=== PATIENT | male | born 1965 | race Caucasian/White ===

== ENCOUNTER → 2019-05-01 16:54 | Outpatient (CLI) | payer OTHER, SELFPAY ==
--- NOTE | 2019-05-01 17:30 | MRI_ITS ---
HISTORY:left shoulder pain s/p fall onto left elbow, unable to lift arm above head MRI EXAMINATION OF THELeft SHOULDER COMPARISON: None TECHNIQUE: Coronal fat-suppressed T2 and fat-suppressed proton density, sagittal T2 and axial fat-suppressed proton density and T2 # of images including paperwork:173 FINDINGS: Bones: There is no acute fracture. Minimal marrow edema is seen at the greater tuberosity. There is superior subluxation of the humeral head in relation to the glenoid. Rotator cuff: There is a full-thickness tear involving the supraspinatus tendon seen best on coronal image 9 series 6 and sagittal image 19 series 6. This measures approximate 1.5 cm AP. There do appear to be posterior fibers that appear intact. The infraspinatus tendon is intact. Subscapularis tendon is frayed at the articular surface with minimal intrasubstance tearing involving the superior most fibers. The teres minor tendon is intact no evidence of muscle atrophy Coracoacromial arch and Acromioclavicular joint: The acromion demonstrates Bigliani Type 2 morphology. The acromiohumeral distance is preserved. There is minimal lateral downsloping of the acromion. Moderate acromial clavicular arthropathy. Superior and inferior osteophytes. There is fluid seen within the subacromial subdeltoid bursa. Coracoacromial ligament appears mildly thickened and slightly effaces the supraspinatus muscle proximally Biceps tendon: The bicipital tendon is poorly on this study due to motion. The extra-articular tendon is visualized within the bicipital groove. Evaluation of the intra-articular tendon is markedly limited. Glenohumeral joint and labrum: Small joint effusion. The anterior and the posterior bands of the inferior glenohumeral ligament are intact. I do not see a definite labral tear. No masses are seen within the suprascapular notch or the spinoglenoid notch. The quadrilateral space is unremarkable. There is glenohumeral joint space narrowing however the articular cartilage appears intact CONCLUSION: Full-thickness tear of the supraspinatus tendon. There may be minimal posterior fibers persist. Superior subluxation humeral head in relation to glenoid. The glenohumeral joint space is preserved however. Moderate acromioclavicular arthropathy. There is fluid seen within the subacromial subdeltoid bursa. I do not see a definite labral tear. The bicipital tendon intra-articular is not well visualized on the study due to motion. at [id number] Reported and signed by: Lauren Casillas DO Electronically Signed: Lauren Casillas DO at 23:37 EST Tel , Service support , MRI/Upper Ext Joint Only(Routine)
== END ==
PROVIDERS: Family Provider Family Medicine; PCP Family Medicine; Referring Provider Family Medicine; Visit Provider Family Medicine
DX: S40.012A Contusion of left shoulder, initial encounter (principal); S43.402A Unspecified sprain of left shoulder joint, initial encounter
CPT/HCPCS: 73221

== ENCOUNTER → 2019-06-08 09:42 | Outpatient (CLI) | payer OTHER, SELFPAY ==
[2016-09-26 22:18] VITALS: BMI 30.2
--- NOTE | 2019-06-08 10:03 | EKG12_ITS ---
Test Reason : PRE-OP Blood Pressure : / mmHG Vent. Rate : 070 BPM Atrial Rate : 070 BPM P-R Int : 120 ms QRS Dur : 076 ms QT Int : 392 ms P-R-T Axes : 055 025 050 degrees QTc Int : 423 ms Normal sinus rhythm Nonspecific ST abnormality Abnormal ECG Confirmed by HANS DAWN, ROSIBEL ([id number]), editor in chief newspaper ESTER SMALL ([id number]) on 06/11/2019 10:15:06 AM Referred By: Aidan Small Confirmed By:TAYE MAXWELL MD
[2019-06-08 11:16] LABS: Anion Gap 7 (5-15); BUN 30 mg/dL (7-18); BUN/Creat Ratio 20.8 RATIO (10-20); Calcium,Total 9.4 mg/dL (8.5-10.1); Chloride 99 mmol/L (98-107); Creatinine, Serum 1.44 mg/dL (0.70-1.30); EST Glomerular Filtration Rate 54 mL/min (>60); Est Glom Filt Rate - Afr Amer 66 mL/min (>60); Glucose 104 mg/dL (74-106); Potassium 3.7 mmol/L (3.5-5.1); Sodium Level 134 mmol/L (136-145)
== END ==
PROVIDERS: PCP Family Medicine; Referring Provider Orthopaedic Surgery; Visit Provider Orthopaedic Surgery
DX: Z01.818 Encounter for other preprocedural examination (principal); I10 Essential (primary) hypertension; Z79.899 Other long term (current) drug therapy
CPT/HCPCS: 36415; 80048; 93005

== ENCOUNTER → 2021-10-06 | Outpatient (CLI) | payer OTHER, SELFPAY ==
--- NOTE | 2021-10-06 06:46 | MRI_ITS ---
STUDY: MRI RIGHT ELBOW REASON FOR EXAM: Right posterior elbow pain, felt a pop 09/17/2021. TECHNIQUE: Standardized fat and water weighted pulse sequences were obtained in all 3 orthogonal planes. COMPARISON: None. FINDINGS: There is a small subchondral cyst in the posterior capitellum. Normal radial collateral ligamentous complex. There is an undersurface partial tear of the common extensor tendon (inversion recovery coronal images 12, 13). Normal ulnotrochlear articulation. Normal ulnar collateral ligamentous complex. There is a small low-grade undersurface partial tear of the common flexor tendon (inversion recovery coronal image 18). The cubital tunnel is normal, with a normal ulnar nerve. Normal biceps tendon and distal insertion. Normal lacertus fibrosis. Normal brachialis musculotendinous insertion. There is a tear of the distal triceps tendon retracted approximately 1.5 cm from the olecranon process (T2 sagittal images 12-17; inversion recovery coronal image 21). Normal olecranon process. The visualized distal humerus, proximal radius, and ulna are normal. There is edema in the distal triceps muscle (inversion recovery coronal image 17). There is fluid and edema in the posterior subcutis adipose space. MRI/Upper Ext Joint Only(Routine) IMPRESSION: Retracted tear of the distal triceps tendon. Undersurface partial tear of the common extensor tendon. Small low-grade undersurface partial tear of the common flexor tendon. Electronically Signed: Sunday Lombardo MD at 9:46 EDT ,
== END | disposition home or self-care (01) ==
LOC: MRI 06:39
PROVIDERS: PCP Family Medicine
DX: S46.311A Strain of muscle, fascia and tendon of triceps, right arm, initial encounter (principal); S56.511A Strain of other extensor muscle, fascia and tendon at forearm level, right arm, initial encounter; S56.211A Strain of other flexor muscle, fascia and tendon at forearm level, right arm, initial encounter
CPT/HCPCS: 73221

== ENCOUNTER 2022-01-17 10:47 | Inpatient (IN) | payer BC, SELFPAY ==
[2022-01-17] VITALS (20 sets, daily range): BP systolic 80–129; BP diastolic 48–90; PULSE 72–94; RESP 16–25; TEMP 36.2–37.1; O2SAT 94–100; BMI 33.7; BMI 24.1; BMI 30.6
--- NOTE | 2022-01-17 11:01 | CT_ITS ---
We are attempting to reach an attending provider to discuss findings. An addendum with communication details will be sent when the communication is complete. STUDY: CT HEAD STROKE PROTOCOL W/O CONTRAST INJECTION REASON FOR EXAM: Male, 56 years old. Neuro deficit, acute, stroke suspected RADIATION DOSAGE (If Supplied By Facility): CTDIvol = ( ) mGy, DLP = ( ) mGycm TECHNIQUE: Transaxial CT imaging of the brain was performed without administration of intravenous contrast material. Individualized dose optimization techniques were used for this CT. COMPARISON: No relevant priors. FINDINGS: Normal soft tissue structures. Normal calvarium. Normal size ventricles and extra-axial spaces for the patient''s age. Normal white matter tracts of the cerebral hemispheres. Normal basal ganglia and thalami. Normal brainstem. Normal cerebellum. There is no intracranial hemorrhage. There are no findings of an acute ischemic infarction. Normal visualized paranasal sinuses. ASPECT score: 10 CT/STROKE Brain/Head without Cont IMPRESSION: Normal unenhanced CT scan of the brain. Electronically Signed: Lauren Pritchard MD at 11:37 EDT ,
--- NOTE | 2022-01-17 11:01 | EKG12_ITS ---
Test Reason : SOB Blood Pressure : / mmHG Vent. Rate : 095 BPM Atrial Rate : 095 BPM P-R Int : 122 ms QRS Dur : 082 ms QT Int : 408 ms P-R-T Axes : 023 017 041 degrees QTc Int : 512 ms Normal sinus rhythm Prolonged QT Abnormal ECG Confirmed by BO DAWN, YAMIL ([id number]), subeditor KACI PUCKETT ([id number]) on 01/18/2022 10:48:34 AM Referred By: Confirmed By:YAMIL SORIANO MD
--- NOTE | 2022-01-17 11:01 | ED.RN ---
this nurse obsevered less than 30 seconds of tonic muscle stiffinging and head pulling up. pt would be able to to response after, no sx of post ectial
--- NOTE | 2022-01-17 11:10 | RAD_ITS ---
STUDY: X-RAY CHEST REASON FOR EXAM: Male, 56 years old. Neuro deficit, acute, stroke suspected TECHNIQUE: Single AP portable view of the chest. COMPARISON: September 26, 2016 chest x-ray FINDINGS: The lungs are clear and expanded. There is no demonstrated pleural abnormality. Normal size heart. Normal mediastinum and raymundo. Normal visualized pulmonary arteries. Normal visualized aortic arch and descending thoracic aorta. There are diffuse degenerative changes of the visualized thoracic spine. There is degenerative osteoarthritis of the bilateral shoulders. There is no demonstrated abnormality of the visualized soft tissue structures of the upper abdomen. RAD/Chest 1 View IMPRESSION: Degenerative changes, as described above. No demonstrated acute cardiopulmonary process. Electronically Signed: Lauren Pritchard MD at 12:58 EDT ,
--- NOTE | 2022-01-17 11:15 | ED.RN ---
pt report drinks bottle of vodka a day. last drink was .
[2022-01-17 11:26] LABS: Absolute Lymphocyte Count 0.64 X10^3/uL (0.83-4.51); Absolute Neutrophil Count 15.7 X10^3/uL (2.0-7.7); Basophil# 0.01 X10^3/uL; Basophil% 0.1 % (0-1); Eosinophil# 0.03 X10^3/uL; Eosinophils% 0.2 % (0-5); Hematocrit 33.8 % (40-54); Hemoglobin 13.3 g/dL (13.0-16.5); Lymphocyte # 0.64 X10^3/ul (0.83-4.51); Lymphocyte % 3.5 % (19-41); Mean Corp Hgb Conc 39.3 g/dL (32-36); Mean Corpuscular Hgb 34.9 pg (27.0-32.0); Mean Corpuscular Volume 88.7 fL (80-94); Mean Platelet Vol. 10.3 fl (6.2-12.0); Monocyte# 1.81 X10^3/uL; Monocyte% 9.9 % (0-10); NRBC Flagged by Analyzer 0 % (0-5); Neutrophil # 15.65 X10^3/uL (2.7-7.7); Neutrophil % 85.3 % (47-70); POSITIVE COUNT YES; POSITIVE DIFFERENTIAL YES; Platelet Count 186 K/mm3 (150-450); RBC Distribution Width CV 12.3 % (11.6-14.6); RBC Distribution Width SD 39.9 fl (35.1-43.9); Red Blood Count 3.81 M/mm3 (4.6-6.2); White Blood Count 18.3 K/mm3 (4.4-11.0)
--- NOTE | 2022-01-17 11:29 | EX.ED.DYSGE1 ---
HPI History of Present Illness Chief Complaint: Neuro S/Sx Informant: patient and spouse/S.O. Onset/Context/Timing Onset: Days (4) Context: Gradual Onset Timing: Intermittent and Lasts (minutes) Quality: clenching hands, slurred speech Current Severity: Severe Maximum Severity: Severe Worsened by: unk Relieved by: unk Narrative Narrative: [place] . He states that he usually drink a lot of alcohol, he states 1-1.5 bottles of 42% vodka per day. Today being Tuesday morning, his last drink was Tuesday; on he did not feel well and so he stopped drinking. Since then, he has had multiple falls, during which he denies any injury, he has had trouble using both of his hands, saying they basically are inaccurate at trying to grab things and/or weak. did not witness all of this since she was working a lot of the time, but today she noticed him clenching his hands and acting a bit confused, and slurring speech severely prior to coming here. In his speech goes back to normal. Here in triage, nurse noticed an episode of this, he was almost decerebrate posturing transiently unresponsive, but this only lasted a couple minutes and then he was slurring his speech, moving everything, and his speech gradually came back to normal. [facility] Medical History Alcoholic Hypertension Home Medications aspirin 81 mg tablet,delayed release (Aspir-Low) 81 mg PO DAILY ##1 09/27/16 [Rx Last Taken Unknown] chlorthalidone 25 mg tablet 25 mg PO DAILY 01/17/22 [History Last Taken Unknown] irbesartan 150 mg tablet (Avapro) 150 mg PO DAILY 01/17/22 [History Last Taken Unknown] metoprolol succinate 25 mg tablet,extended release 24 hr 25 mg PO BID 01/17/22 [History Last Taken Unknown] Allergy/AdvReac Type Severity Reaction Status Date / Time No Known Allergies Allergy Verified 01/17/22 10:55 Family History (Updated 01/17/22 @ 13:[address] Dania Lopes MD) Mother Hypertension Surgical History (Updated 01/17/22 @ 13:[address] Dania Lopes MD) H/O elbow surgery H/O shoulder surgery History of herniorrhaphy Social History (Updated 01/17/22 @ 13:[address] Dania Lopes MD) household members: spouse Smoking Status: Current every day smoker tobacco type: smokeless tobacco alcohol intake: current substance use type: does not use ROS ROS ED Constitutional Constitutional ED: Reports fatigue, malaise and sweats; Denies chills or fever(s) Eyes Eyes: Denies change in vision or diplopia ENT ENT ED: Denies rhinorrhea or sore throat Cardiovascular Cardiovascular: Denies chest pain or palpitations Respiratory/Chest Respiratory/Chest: Denies cough or dyspnea Gastrointestinal Gastrointestinal: Denies abdominal pain, diarrhea, nausea or vomiting Genitourinary Genitourinary ED: Denies dysuria or hematuria Musculoskeletal Musculoskeletal: Denies back pain or neck pain Integumentary Denies abscess or rash Neurologic Neurologic: Reports as per HPI, memory loss and seizures; Denies headache(s), paresthesias or weakness Psychiatric Psychiatric: Denies anxiety or suicidal thoughts EXAM Physical Exam Const Vital Signs: 01/17/22 10:49 01/17/22 11:01 01/17/22 11:50 Temperature 97.2 F L Temperature Source Temporal Pulse Rate 94 80 Respiratory Rate 16 20 H Blood Pressure 103/90 H 81/49 L Blood Pressure Mean 94 59 Pulse Ox 98 99 99 Oxygen Delivery Method Room Air Room Air Room Air 01/17/22 12:20 Temperature Temperature Source Pulse Rate 76 Respiratory Rate 18 Blood Pressure 94/65 Blood Pressure Mean 74 Pulse Ox 100 Oxygen Delivery Method Room Air Positive well nourished and well developed General Appearance ED: well developed and NAD HEENT Reports moist mucous membranes normocephalic and atraumatic Eyes PERRL and EOMs intact bilaterally Neck full ROM and supple Resp normal respiratory effort and clear to auscultation bilaterally Cardio regular rate, regular rhythm and no murmurs GI non-tender and non-distended Auscultation: normoactive bowel sounds Palpation: soft Back/Spine no CVA tenderness General Back: other FROM Extremity normal to inspection General Extremety ED: Negative for edema, pulses abnormal or tenderness General Extremity: Negative for edema or pulses abnormal Neuro oriented x3, CN's II-XII intact bilaterally and no sensory deficits noted Neuro Narrative: Initial evaluation, severely dysarthric, this resolved during the evaluation. No aphasia. No lateralizing neurologic symptoms otherwise. Including dysarthria, NIHSS 2. When that resolved, NIHSS 0. Sensorium / Orientation: awake and alert Motor Exam: strength 5/5 throughout Psych mental status grossly normal Skin no rashes or lesions noted and no wounds MDM MDM MDM Narrative Medical decision making narrative: Information about his alcohol use came in of the initial presentation, and given all of that I suspect he is having alcohol withdrawal seizures. Given that he was still feeling very poorly, and appeared diaphoretic with borderline low systolic blood pressure, septic work-up was obtained looking for a source of his fatigue. I suspect his symptoms are due to his hyponatremia which is severe at 113 with a chloride of 68. His troponin is also elevated for unknown reasons. His EKG does not show an acute injury pattern. His blood pressure did go down to 81/49 so I gave him a small bolus of IV fluid, but after that helped his pressure we returned to slow IV fluids. Given that he has been having seizure episodes that were witnessed in triage, he was given a bolus of hypertonic saline, 150cc at just over 1 mL/Kg/hr. will be admitted to ICU. His CT head is negative for anything acute. Discussed with slipcover cutter and hospitalist. Lab Data Attestation: I reviewed the patient's lab results. Labs: Laboratory Results - last 24 hr 01/17/22 01/17/22 01/17/22 11:10 11:10 11:10 WBC 18.3 H RBC 3.81 L Hgb 13.3 Hct 33.8 L MCV 88.7 MCH 34.9 H MCHC 39.3 H RDW Std Deviation 39.9 RDW Coeff of Stephon 12.3 Plt Count 186 MPV 10.3 Immature Gran % (Auto) 1.000 H Neut % (Auto) 85.3 H Lymph % (Auto) 3.5 L [place] % (Auto) 9.9 Eos % (Auto) 0.2 Baso % (Auto) 0.1 Absolute Neuts (auto) 15.7 H Absolute Lymphs (auto) 0.64 L Nucleated RBC % 0 Atypical Lymphocytes 1+ PT 13.7 INR 1.1 APTT 30.0 Sodium 113 L* Potassium 3.1 L Chloride 68 L* Carbon Dioxide 18.0 L Anion Gap 27 H BUN 31 H Creatinine 1.61 H Estim Creat Clear Calc 65.44 Est GFR (MDRD) Af Amer 57 L Est GFR (MDRD) Non-Af 47 L BUN/Creatinine Ratio 19.3 Glucose 98 Calcium 9.0 Magnesium Total Bilirubin Direct Bilirubin AST ALT Alkaline Phosphatase Troponin I High Sens 367 H* Total Protein Albumin Globulin Urine Color Urine Clarity Urine pH Ur Specific [place] Urine Protein Urine Glucose (UA) Urine Ketones Urine Occult Blood Urine Nitrite Urine Bilirubin Urine Urobilinogen Ur Leukocyte Esterase Urine RBC Urine WBC Ur Squamous Epith Cells Urine Bacteria Fine Granular Casts Urine Mucus Urine Opiates Screen Urine Methadone Screen Ur Barbiturates Screen Ur Phencyclidine Scrn Ur Amphetamines Screen MDMA (Ecstasy) Screen U Benzodiazepines Scrn Urine Cocaine Screen U Cannabinoids Screen Ur Drug Screen Comment Ethyl Alcohol 01/17/22 01/17/22 01/17/22 11:10 11:10 11:50 WBC RBC Hgb Hct MCV MCH MCHC RDW Std Deviation RDW Coeff of Stephon Plt Count MPV Immature Gran % (Auto) Neut % (Auto) Lymph % (Auto) [place] % (Auto) Eos % (Auto) Baso % (Auto) Absolute Neuts (auto) Absolute Lymphs (auto) Nucleated RBC % Atypical Lymphocytes PT INR APTT Sodium Potassium Chloride Carbon Dioxide Anion Gap BUN Creatinine Estim Creat Clear Calc Est GFR (MDRD) Af Amer Est GFR (MDRD) Non-Af BUN/Creatinine Ratio Glucose Calcium Magnesium 1.9 Total Bilirubin 2.50 H Direct Bilirubin 0.78 H AST 689 H ALT 194 H Alkaline Phosphatase 61 Troponin I High Sens Total Protein 7.4 Albumin 3.7 Globulin 3.7 Urine Color Urine Clarity Urine pH Ur Specific [place] Urine Protein Urine Glucose (UA) Urine Ketones Urine Occult Blood Urine Nitrite Urine Bilirubin Urine Urobilinogen Ur Leukocyte Esterase Urine RBC Urine WBC Ur Squamous Epith Cells Urine Bacteria Fine Granular Casts Urine Mucus Urine Opiates Screen NEGATIVE Urine Methadone Screen NEGATIVE Ur Barbiturates Screen NEGATIVE Ur Phencyclidine Scrn NEGATIVE Ur Amphetamines Screen NEGATIVE MDMA (Ecstasy) Screen NEGATIVE U Benzodiazepines Scrn NEGATIVE Urine Cocaine Screen NEGATIVE U Cannabinoids Screen NEGATIVE Ur Drug Screen Comment Ethyl Alcohol < 3.0 01/17/22 11:50 WBC RBC Hgb Hct MCV MCH MCHC RDW Std Deviation RDW Coeff of Stephon Plt Count MPV Immature Gran % (Auto) Neut % (Auto) Lymph % (Auto) [place] % (Auto) Eos % (Auto) Baso % (Auto) Absolute Neuts (auto) Absolute Lymphs (auto) Nucleated RBC % Atypical Lymphocytes PT INR APTT Sodium Potassium Chloride Carbon Dioxide Anion Gap BUN Creatinine Estim Creat Clear Calc Est GFR (MDRD) Af Amer Est GFR (MDRD) Non-Af BUN/Creatinine Ratio Glucose Calcium Magnesium Total Bilirubin Direct Bilirubin AST ALT Alkaline Phosphatase Troponin I High Sens Total Protein Albumin Globulin Urine Color Yellow Urine Clarity Sl. Cloudy Urine pH 5.0 Ur Specific [place] 1.020 Urine Protein 30 H Urine Glucose (UA) 50 H Urine Ketones 150 A* Urine Occult Blood 250 H Urine Nitrite Negative Urine Bilirubin Negative Urine Urobilinogen Normal Ur Leukocyte Esterase Negative Urine RBC 0 SEEN Urine WBC 0 SEEN Ur Squamous Epith Cells 0 SEEN Urine Bacteria 0 SEEN Fine Granular Casts 0-5 SEEN Urine Mucus 0 SEEN Urine Opiates Screen Urine Methadone Screen Ur Barbiturates Screen Ur Phencyclidine Scrn Ur Amphetamines Screen MDMA (Ecstasy) Screen U Benzodiazepines Scrn Urine Cocaine Screen U Cannabinoids Screen Ur Drug Screen Comment Ethyl Alcohol Radiography Chest X-Ray - ED: 1 View, Read by ED Physician, No Acute Disease, Chronic Changes and Cardiomegaly Diagnostic Testing: Clinical Impression(s) from Imaging Studies Brain CT 01/17/22 11:01 IMPRESSION: Normal unenhanced CT scan of the brain. Electronically Signed: Lauren Pritchard MD at 11:37 EDT , ADDENDUM: 01/17/22 1144 IMPRESSION: Normal unenhanced CT scan of the brain. N.B. : The above Results were Read Back by Lauren Pritchard MD to Dr. Kin Mosley MD, and understanding confirmed on 01/17/2022 11:37:58 (ET). Electronically Signed: Lauren Pritchard MD at 11:37 EDT , Chest X-Ray 01/17/22 11:10 IMPRESSION: Degenerative changes, as described above. No demonstrated acute cardiopulmonary process. Electronically Signed: Lauren Pritchard MD at 12:58 EDT , Rhythm Strip Rhythm Strip: Sinus Rhythm Rate: 95 Ectopy: None EKG Initial EKG: Attestation: I personally reviewed and interpreted this EKG as follows: Interpretation: Sinus Rhythm and No Acute Injury Pattern Critical Care Time Critical Care Time: Yes Critical care time (excluding procedures): 30-74 minutes (45 min), Including time spent:, Discussing w/Patient &/or Family/Manager Oncology, Discussing w/Consultants, Arranging Admission or Transfer and Performing Direct Patient Care at Bedside Discharge Plan Dx/Rx/DC Orders Clinical Impression: Acute hyponatremia, Alcohol withdrawal, Seizures, Elevated troponin, Alcohol dependence Disposition Disposition: Acute Care Hospital [facility] Discharge Date/Time: 01/17/22 13:46
[2022-01-17 11:39] LABS: International Normalized Ratio 1.1; Prothrombin Time (Protime)PT. 13.7 SECONDS (11.7-14.9)
[2022-01-17 11:44] LABS: Alcohol, Blood (Medical)-Serum < 3.0 mg/dL
[2022-01-17 11:55] LABS: Bacteria 0 SEEN /hpf (None Seen); Color, Urine Yellow (Yellow); Glucose, Dipstick 50 mg/dl (Normal); Leukocyte Esterase-Dipstick Negative /ul (Negative); Mucous, Urine 0 SEEN /hpf (<or=2+); Nitrite-Dipstick Negative (Negative); Occult Blood-Urine 250 /ul (Negative); Protein-Dipstick 30 mg/dl (Negative); Red Blood Cells-Urine 0 SEEN /hpf (0-5); Squamous Epithelial Cells - UA 0 SEEN /hpf (0-5); Urine Bilirubin Dipstick Negative (Negative); Urine Clarity Sl. Cloudy (Clear); Urine Urobilinogen Normal (Normal); White Blood Cells 0 SEEN /hpf (0-5)
[2022-01-17 11:56] LABS: Anion Gap 27 (5-15); BUN 31 mg/dL (7-18); BUN/Creat Ratio 19.3 RATIO (10-20); Chloride 68 mmol/L (98-107); Creatinine, Serum 1.61 mg/dL (0.70-1.30); EST Glomerular Filtration Rate 47 mL/min (>60); Est Glom Filt Rate - Afr Amer 57 mL/min (>60); Estimated Creatinine Clearance 65.44 ml/min; Glucose 98 mg/dL (74-106); Potassium 3.1 mmol/L (3.5-5.1); Sodium Level 113 mmol/L (136-145); Troponin-I HS 367 pg/mL (3.0-78.0)
[2022-01-17 12:05] LABS: Ketone-Dipstick 150 mg/dl (Negative)
[2022-01-17 12:07] LABS: Fine Granular Cast- Urine 0-5 SEEN /lpf (0-5)
[2022-01-17 12:10] LABS: Amphetamine Urine VISTA NEGATIVE (<1000 ng/mL); Barbiturate Urine VISTA NEGATIVE (< 200 ng/mL); Benzodiazepine Urine VISTA NEGATIVE (< 200 ng/mL); Cocaine Urine VISTA NEGATIVE (< 300 ng/mL); Ecstacy Urine VISTA NEGATIVE (< 500 ng/mL); Methadone Urine VISTA NEGATIVE (< 300 ng/mL); PCP Urine VISTA NEGATIVE (< 25 ng/mL); THC Urine VISTA NEGATIVE (< 50 ng/mL); Vista UDS pH Range 5
[2022-01-17 12:15] LABS: Differential Indicated SCAN CRITERIA MET
[2022-01-17 12:17] LABS: Atypical Lymphocyte 1+ %
[2022-01-17] MEDS: 0.9% Normal Saline 1,000 ML 150 ML IV ×2 (12:21→19:46)
--- NOTE | 2022-01-17 12:47 | PCM.HP.STD ---
HPI - General General Date of Admission: 01/17/22 Date of Service: 01/17/22 Chief Complaint: Generalised weakness - 1 week, episodes of unresponsiveness - 1 day HPI Narrative BLANCA SHEEHAN, is a 56 M who presents with the above. Patient has past medical history of hypertension, chronic alcohol use, with a history of alcohol withdrawal seizures and severe hyponatremia. He drinks 42% vodka. He has been drinking heavily for some time. He stated that he has been feeling unwell over the past 1 week. He feels very weak, unable to hold objects. On (4 days ago), he decided to quit drinking because he did not feel well. He has since had multiple falls, had trouble using his hands, and felt generally weak. His noted that he was clenching his hands and acting confused with slurred speech. Patient was noted in the ED to have a period of unresponsiveness with decerebrate posturing that lasted for few minutes and then he was slurring his speech and then his speech went back to normal. Patient has history of similar presentation back in 2017 where he had alcohol withdrawal seizure and was found to be severely hyponatremic. He was also found to have elevated fatty acid Vitals in ED showed blood pressure 103/8090, heart rate 94, respiratory 16, temperature 97.2 F, oxygen saturation 98% on room air. WC count is 18.3, hemoglobin 13.2, platelet count 186, sodium 113, potassium 3.1, chloride 6.8, bicarbonate 18, anion gap 27, BUN 31, creatinine 1.61, previous creatinine was 1.44, troponin was 367, EKG showed normal sinus rhythm, prolonged QTC, no acute ST changes. UA is slightly cloudy, glucose 50, ketones 150, nitrate negative, leukocyte esterase negative, WBC negative. Urine tox unremarkable. Alcohol level was less than 3 CT of the brain showed chronic ambulatory changes. Chest x-ray showed degenerative changes no acute cardiopulmonary process. [facility] Medical History Alcoholic Hypertension Home Medications aspirin 81 mg tablet,delayed release (Aspir-Low) 81 mg PO DAILY ##1 09/27/16 [Rx Last Taken Unknown] chlorthalidone 25 mg tablet 25 mg PO DAILY 01/17/22 [History Last Taken Unknown] irbesartan 150 mg tablet (Avapro) 150 mg PO DAILY 01/17/22 [History Last Taken Unknown] metoprolol succinate 25 mg tablet,extended release 24 hr 25 mg PO BID 01/17/22 [History Last Taken Unknown] Allergy/AdvReac Type Severity Reaction Status Date / Time No Known Allergies Allergy Verified 01/17/22 10:55 Family History (Updated 01/17/22 @ 13:[address] Dania Lopes MD) Mother Hypertension Surgical History (Updated 01/17/22 @ 13:[address] Dania Lopes MD) H/O elbow surgery H/O shoulder surgery History of herniorrhaphy Social History (Updated 01/17/22 @ 13:[address] Dania Lopes MD) household members: spouse Smoking Status: Former smoker alcohol intake: current substance use type: does not use ROS ROS Narrative Constitutional: Reports: Malaise, Weakness, Fatigue. Denies: Anorexia, Chills, Fever, Night Sweats, Weight Change Eyes: Denies: Blurred vision, Cataracts, Conjunctivae Inflammation, Pain, Redness, Vision Change HEENT: Denies: Difficulty Hearing, Difficulty Swallowing, Head Aches, Hearing Changes, Sinus Congestion, Sinus Drainage Cardiovascular: Denies: Chest Pain, Orthopnea, Palpitations Respiratory: Denies: Cough, Shortness of breath at rest, Sputum production Gastrointestinal: Denies: Abdominal Pain, Nausea, Vomiting Genitourinary: Denies: Dysuria Musculoskeletal: Denies: Joint Pain, Joint stiffness, Joint swelling, Joint Tenderness Skin: Denies: Rash, Wounds Neurological: See HPI Vital Signs Vital Signs Vital Signs: 01/17/22 10:49 01/17/22 11:01 01/17/22 11:50 Temperature 97.2 F L Temperature Source Temporal Pulse Rate 94 80 Respiratory Rate 16 20 H Blood Pressure 103/90 H 81/49 L Blood Pressure Mean 94 59 Pulse Ox 98 99 99 Oxygen Delivery Method Room Air Room Air Room Air 01/17/22 12:20 Temperature Temperature Source Pulse Rate 76 Respiratory Rate 18 Blood Pressure 94/65 Blood Pressure Mean 74 Pulse Ox 100 Oxygen Delivery Method Room Air Weight Weight: 94.9 kg Body Mass Index (BMI) 24.1 Physical Exam Narrative Physical exam: General: Alert, Oriented x3, appears unkempt, flat face HEENT: Atraumatic Oral: Moist Mucosa Neck: Supple Lungs: Diminished to auscultation Cardiovascular: HS I+II, regular, no murmurs Abdomen: Bowel Sounds Present, Soft, Non Tender Extremities: No edema Skin: No rashes, No breakdown Neurological: Grossly intact Psych/Mental Status: Appropriate Results Lab / Micro Data Result Diagrams: 01/17/22 11:10 01/17/22 11:10 Labs: Laboratory Results - last 24 hr 01/17/22 11:10: WBC 18.3 H, RBC 3.81 L, Hgb 13.3, Hct 33.8 L, MCV 88.7, MCH 34.9 H, MCHC 39.3 H, RDW Std Deviation 39.9, RDW Coeff of Stephon 12.3, Plt Count 186, MPV 10.3, Immature Gran % (Auto) 1.000 H, Neut % (Auto) 85.3 H, Lymph % (Auto) 3.5 L, [place] % (Auto) 9.9, Eos % (Auto) 0.2, Baso % (Auto) 0.1, Absolute Neuts (auto) 15.7 H, Absolute Lymphs (auto) 0.64 L, Nucleated RBC % 0, Atypical Lymphocytes 1+ 01/17/22 11:10: PT 13.7, INR 1.1, APTT 30.0 01/17/22 11:10: Sodium 113 L*, Potassium 3.1 L, Chloride 68 L*, Carbon Dioxide 18.0 L, Anion Gap 27 H, BUN 31 H, Creatinine 1.61 H, Estim Creat Clear Calc 65.44, Est GFR (MDRD) Af Amer 57 L, Est GFR (MDRD) Non-Af 47 L, BUN/Creatinine Ratio 19.3, Glucose 98, Calcium 9.0, Troponin I High Sens 367 H* 01/17/22 11:10: Ethyl Alcohol < 3.0 01/17/22 11:50: Urine Opiates Screen NEGATIVE, Urine Methadone Screen NEGATIVE, Ur Barbiturates Screen NEGATIVE, Ur Phencyclidine Scrn NEGATIVE, Ur Amphetamines Screen NEGATIVE, MDMA (Ecstasy) Screen NEGATIVE, U Benzodiazepines Scrn NEGATIVE, Urine Cocaine Screen NEGATIVE, U Cannabinoids Screen NEGATIVE, Ur Drug Screen Comment 01/17/22 11:50: Urine Color Yellow, Urine Clarity Sl. Cloudy, Urine pH 5.0, Ur Specific [place] 1.020, Urine Protein 30 H, Urine Glucose (UA) 50 H, Urine Ketones 150 A*, Urine Occult Blood 250 H, Urine Nitrite Negative, Urine Bilirubin Negative, Urine Urobilinogen Normal, Ur Leukocyte Esterase Negative, Urine RBC 0 SEEN, Urine WBC 0 SEEN, Ur Squamous Epith Cells 0 SEEN, Urine Bacteria 0 SEEN, Fine Granular Casts 0-5 SEEN, Urine Mucus 0 SEEN Micro: Microbiology 01/17/22 11:17 Nasal Secretion SARS-CoV-2 Antigen (Rapid) - Final Rhythm Strip Rhythm Strip: Sinus Rhythm Rate: 95 Ectopy: None Radiology Impression Brain CT 01/17/22 11:01 IMPRESSION: Normal unenhanced CT scan of the brain. Electronically Signed: Lauren Pritchard MD at 11:37 EDT , ADDENDUM: 01/17/22 1144 IMPRESSION: Normal unenhanced CT scan of the brain. N.B. : The above Results were Read Back by Lauren Pritchard MD to Dr. Kin Mosley MD, and understanding confirmed on 01/17/2022 11:37:58 (ET). Electronically Signed: Lauren Pritcahrd MD at 11:37 EDT , Assessment & Plan Assessment/Plan (1) Alcohol withdrawal seizure: (2) Hyponatremia: (3) Abnormal LFTs: PLAN: Plan 1. Acute alcohol withdrawal seizures in a known alcoholic, witnessed in the ED Last drink was 4 days prior to admission Heavy drinker- 42% vodka about a liter daily Previous history of similar presentation in 2017 with associated severe hyponatremia CT of the brain is unremarkable Admit to ICU, monitor on the phenobarbital alcohol withdrawal protocol 2. Severe hyponatremia, likely secondary to alcohol use versus dehydration versus chlorthalidone side effect Patient continued to take his chlorthalidone despite not feeling well. Sodium is 113, previous sodium was normal Check urine sodium, creatinine, osmolality, serum osmolality, TSH BMP every 4 hours 3. Dehydration, admission creatinine of 1.61 patient with previous creatinine 1.44 Continue IV fluids, trend BMP 4. Hypomagnesemia, Mg 1.9, replaced, recheck in a.m. 5. Elevated troponin likely demand/noncardiac related secondary to #1 EKG shows no acute ST-T changes Trend troponin 6. Elevated transaminases secondary to alcohol use, doubt alcoholic hepatitis Maddrey's discriminant function is 14.9 No RUQ tenderness on exam Will check ultrasound of the liver, hepatitis profile Trend labs 7. Hypertension, relatively hypotensive, Hold chlorthalidone and irbesartan Continue on metoprolol with holding parameters 8. DVT prophylaxis?heparin subcu Charges/Coding Visit Charges Inpatient E&M: 03840 Init Hosp L3
--- NOTE | 2022-01-17 12:54 | EX.PCM.CONCC ---
Assessment & Plan Assessment/Plan (1) Alcohol withdrawal seizure: PLAN: [facility] protocol Watch for further seizures. Etiology could include both alcohol withdrawal and severe hyponatremia. If further seizures are noted, may have to load him with Keppra. (2) Hyponatremia: PLAN: Severe (< 120). Given the seizure in the ED, hypertonic saline bolus is reasonable. After that however, I would recommend frequent checks as sodium may slowly normalize with gentle hydration and we dont want it to overcorrect too rapidly. Q 2 hour sodium checks until sodium is < 125. After that can chance to Q 4 hours X 24 hours. IV hydration (gentle) post hypertonic bolus, fluid rate thereafter to depend upon sodium values. HPI Consult Data Date of Consult: 01/17/22 Attending Care Provider: Dania Lopes MD HPI Narrative Reason for Consultation: Hyponatremia, alcohol withdrawal HPI Narrative: BLANCA SHEEHAN, is a 56 M who presents with hyponatremia and alcohol withdrawal. Per , it seems like the patient is a heavy drinker, but quit on last tuesday. [place]. Usually, he drinks 1 to 1.5 bottles of vodka. He was noted to be a bit confused at home and hence she brought him in. On admission, labs revealed severe hyponatremia, with mild MANUEL. He also was noted to have a seizure in the emergency department. He will be admittd to ICU for further care under medicine service. [facility] Medical History Alcoholic Hypertension Home Medications aspirin 81 mg tablet,delayed release (Aspir-Low) 81 mg PO DAILY ##1 09/27/16 [Rx Last Taken Unknown] chlorthalidone 25 mg tablet 25 mg PO DAILY 01/17/22 [History Last Taken Unknown] irbesartan 150 mg tablet (Avapro) 150 mg PO DAILY 01/17/22 [History Last Taken Unknown] metoprolol succinate 25 mg tablet,extended release 24 hr 25 mg PO BID 01/17/22 [History Last Taken Unknown] Allergy/AdvReac Type Severity Reaction Status Date / Time No Known Allergies Allergy Verified 01/17/22 10:55 Family History (Updated 01/17/22 @ 13:[address] Dania Lopes MD) Mother Hypertension Surgical History (Updated 01/17/22 @ 13:[address] Dania Lopes MD) H/O elbow surgery H/O shoulder surgery History of herniorrhaphy Social History (Updated 01/17/22 @ 13:[address] Dania Lopes MD) household members: spouse Smoking Status: Former smoker alcohol intake: current substance use type: does not use ROS Review of Systems ROS Unobtainable: due to mental status Constitutional Constitutional: Reports fatigue ENT HEENT: Reports dizziness Musculoskeletal Musculoskeletal: Reports myalgias Physical Exam Const alert Constitutional Narrative: Not oriented Medical Records Data Attestation: I reviewed the patient's medical records Lab / Micro Data Result Diagrams: 01/17/22 11:10 01/17/22 11:10 Labs: Laboratory Results - last 24 hr 01/17/22 11:10: WBC 18.3 H, RBC 3.81 L, Hgb 13.3, Hct 33.8 L, MCV 88.7, MCH 34.9 H, MCHC 39.3 H, RDW Std Deviation 39.9, RDW Coeff of Stephon 12.3, Plt Count 186, MPV 10.3, Immature Gran % (Auto) 1.000 H, Neut % (Auto) 85.3 H, Lymph % (Auto) 3.5 L, [place] % (Auto) 9.9, Eos % (Auto) 0.2, Baso % (Auto) 0.1, Absolute Neuts (auto) 15.7 H, Absolute Lymphs (auto) 0.64 L, Nucleated RBC % 0, Atypical Lymphocytes 1+ 01/17/22 11:10: PT 13.7, INR 1.1, APTT 30.0 01/17/22 11:10: Sodium 113 L*, Potassium 3.1 L, Chloride 68 L*, Carbon Dioxide 18.0 L, Anion Gap 27 H, BUN 31 H, Creatinine 1.61 H, Estim Creat Clear Calc 65.44, Est GFR (MDRD) Af Amer 57 L, Est GFR (MDRD) Non-Af 47 L, BUN/Creatinine Ratio 19.3, Glucose 98, Calcium 9.0, Troponin I High Sens 367 H* 01/17/22 11:10: Ethyl Alcohol < 3.0 01/17/22 11:50: Urine Opiates Screen NEGATIVE, Urine Methadone Screen NEGATIVE, Ur Barbiturates Screen NEGATIVE, Ur Phencyclidine Scrn NEGATIVE, Ur Amphetamines Screen NEGATIVE, MDMA (Ecstasy) Screen NEGATIVE, U Benzodiazepines Scrn NEGATIVE, Urine Cocaine Screen NEGATIVE, U Cannabinoids Screen NEGATIVE, Ur Drug Screen Comment 01/17/22 11:50: Urine Color Yellow, Urine Clarity Sl. Cloudy, Urine pH 5.0, Ur Specific [place] 1.020, Urine Protein 30 H, Urine Glucose (UA) 50 H, Urine Ketones 150 A*, Urine Occult Blood 250 H, Urine Nitrite Negative, Urine Bilirubin Negative, Urine Urobilinogen Normal, Ur Leukocyte Esterase Negative, Urine RBC 0 SEEN, Urine WBC 0 SEEN, Ur Squamous Epith Cells 0 SEEN, Urine Bacteria 0 SEEN, Fine Granular Casts 0-5 SEEN, Urine Mucus 0 SEEN Micro: Microbiology 01/17/22 11:17 Nasal Secretion SARS-CoV-2 Antigen (Rapid) - Final Rhythm Strip Rhythm Strip: Sinus Rhythm Rate: 95 Ectopy: None Radiology Impression Brain CT 01/17/22 11:01 IMPRESSION: Normal unenhanced CT scan of the brain. Electronically Signed: Lauren Pritchard MD at 11:37 EDT , ADDENDUM: 01/17/22 1144 IMPRESSION: Normal unenhanced CT scan of the brain. N.B. : The above Results were Read Back by Lauren Pritchard MD to Dr. Kin Mosley MD, and understanding confirmed on 01/17/2022 11:37:58 (ET). Electronically Signed: Lauren Pritchard MD at 11:37 EDT , Charges/Coding Visit Charges Inpatient E&M: 26329 Init Hosp L3
--- NOTE | 2022-01-17 13:07 | ED.RN ---
spoke to Dr Mosley about pt triggering sepsis alert. He said we will not be changing any orders. wlil continue to monitor pt
[2022-01-17 13:10] LABS: AST(SGOT) 689 U/L (15-37); Alanine Aminotransfer ALT/SGPT 194 U/L (16-61); Albumin, Serum 3.7 g/dL (3.2-5.0); Alkaline Phosphatase 61 U/L (45-117); Bilirubin, Direct 0.78 mg/dL (0.00-0.30); Globulin 3.7 g/dL (2.2-4.2); Magnesium 1.9 mg/dL (1.6-2.6); Protein, Total 7.4 g/dL (6.4-8.2)
[2022-01-17] MEDS: Heparin Injection (Vial) 5,000 UNIT/ML VIAL 5000 UNIT SC ×2 (14:28→21:01)
[2022-01-17] MEDS: Phenobarbital 32.4 MG Tablet PO ×2 (14:29→17:49)
[2022-01-17] MEDS: Potassium Chloride 10mEq/100mL 10 MEQ/100 ML IV.SOLN. 100 MEQ IV BOLUS ×4 (14:34→18:22)
[2022-01-17] MEDS: Folic Acid 1 MG Tablet PO (14:49)
[2022-01-17] MEDS: Thiamine Hydrochloride 100 MG Tablet PO (14:49)
[2022-01-17] MEDS: Gabapentin 300 MG Capsule PO (15:14)
[2022-01-17] MEDS: Loperamide 2 MG Capsule PO ×2 (15:14→19:45)
[2022-01-17] MEDS: hydrOXYzine PAM 25 MG Capsule 50 MG PO ×2 (15:14→19:45)
[2022-01-17 15:17] LABS: Troponin-I HS 235 pg/mL (3.0-78.0)
[2022-01-17 17:51] LABS: Troponin-I HS 200 pg/mL (3.0-78.0)
[2022-01-17] MEDS: Dicyclomine 10 MG Capsule 20 MG PO (19:45)
[2022-01-17] MEDS: LORazepam 2 MG/ML Syringe IV ×2 (21:01→22:04)
[2022-01-17] MEDS: 0.9% Saline Lock 10 ML Syringe IV (21:01)
[2022-01-17] MEDS: Metoprolol(XL)Succ 25 MG Tablet PO (21:02)
[2022-01-18] VITALS (19 sets, daily range): BP systolic 88–124; BP diastolic 59–94; PULSE 68–93; RESP 16–25; TEMP 35.8–37.2; O2SAT 92–100
[2022-01-18] MEDS: Phenobarbital 32.4 MG Tablet PO ×6 (00:25→22:40)
[2022-01-18] MEDS: 0.9% Normal Saline 1,000 ML 150 ML IV ×2 (02:35→09:46)
[2022-01-18 04:28] LABS: Absolute Lymphocyte Count 0.78 X10^3/uL (0.83-4.51); Absolute Neutrophil Count 6.3 X10^3/uL (2.0-7.7); Basophil# 0.01 X10^3/uL; Basophil% 0.1 % (0-1); Eosinophil# 0.01 X10^3/uL; Eosinophils% 0.1 % (0-5); Hematocrit 28.5 % (40-54); Hemoglobin 10.5 g/dL (13.0-16.5); Lymphocyte # 0.78 X10^3/ul (0.83-4.51); Lymphocyte % 9.2 % (19-41); Mean Corp Hgb Conc 36.8 g/dL (32-36); Mean Corpuscular Hgb 33.8 pg (27.0-32.0); Mean Corpuscular Volume 91.6 fL (80-94); Monocyte# 1.32 X10^3/uL; Monocyte% 15.5 % (0-10); NRBC Flagged by Analyzer 0 % (0-5); Neutrophil # 6.33 X10^3/uL (2.7-7.7); Neutrophil % 74.5 % (47-70); Platelet Count 137 K/mm3 (150-450); RBC Distribution Width CV 12.5 % (11.6-14.6); RBC Distribution Width SD 41.5 fl (35.1-43.9); Red Blood Count 3.11 M/mm3 (4.6-6.2); White Blood Count 8.5 K/mm3 (4.4-11.0)
[2022-01-18 05:08] LABS: AST(SGOT) 438 U/L (15-37); Alanine Aminotransfer ALT/SGPT 159 U/L (16-61); Albumin, Serum 3.1 g/dL (3.2-5.0); Alkaline Phosphatase 51 U/L (45-117); Anion Gap 17 (5-15); BUN 30 mg/dL (7-18); BUN/Creat Ratio 26.8 RATIO (10-20); Calcium,Total 7.7 mg/dL (8.5-10.1); Chloride 84 mmol/L (98-107); Creatinine, Serum 1.12 mg/dL (0.70-1.30); EST Glomerular Filtration Rate 72 mL/min (>60); Est Glom Filt Rate - Afr Amer 87 mL/min (>60); Estimated Creatinine Clearance 65.67 ml/min; Globulin 3.2 g/dL (2.2-4.2); Glucose 83 mg/dL (74-106); Potassium 2.7 mmol/L (3.5-5.1); Protein, Total 6.3 g/dL (6.4-8.2); Sodium Level 123 mmol/L (136-145)
[2022-01-18] MEDS: LORazepam 2 MG/ML Syringe IV (05:29)
[2022-01-18] MEDS: 0.9% Saline Lock 10 ML Syringe IV ×2 (05:29→11:51)
[2022-01-18] MEDS: Heparin Injection (Vial) 5,000 UNIT/ML VIAL 5000 UNIT SC ×3 (05:40→21:23)
--- NOTE | 2022-01-18 05:55 | US_ITS ---
STUDY: ABDOMINAL ULTRASOUND - RIGHT UPPER QUADRANT REASON FOR VISIT: Male, 56 years old Elevated LFTs TECHNIQUE: Ultrasound evaluation of the right upper quadrant was performed with real-time and static hu-scale imaging. TECHNICAL QUALITY: Limited. Examination limited due to the patient?s condition. COMPARISON: None. FINDINGS: Liver: The liver measures 15.2 cm. There is increased echogenicity consistent with fatty infiltration. The bile ducts are within normal limits. There is hepatic color flow. The direction of portal flow is hepatopetal. There is no demonstrated mass lesion. Gallbladder: Normal distended gallbladder. The gallbladder wall measures 2.5 mm. There is a negative sonographic Sarabia''s sign. There is no pericholecystic fluid. There is biliary sludge dependent within the gallbladder. Common Bile Duct (C.B.D.): The common bile duct measures 3.8 mm. Pancreas: Normal size of the head, body and tail of the pancreas. There is increased echogenicity of the pancreas. There is no demonstrated pancreatic mass or cyst. Right Kidney: Normal size of the right kidney. The right kidney measures 11.5 x 6.1 x 6.1 cm. Normal renal cortex. The right cortex measures 1.2 cm. There is a simple 1 cm cyst in the right lobe. There is no right hydronephrosis. US/Liver IMPRESSION: Fatty liver, no discrete lesion Echogenic sludge in the gallbladder, no sonographic evidence of cholecystitis Echogenic pancreas Simple hepatic cyst, no specific follow-up needed Electronically Signed: Ruslan Avilez MD at 12:18 EDT ,
--- NOTE | 2022-01-18 05:56 | PCM.PN.INT ---
Assessment & Plan Assessment/Plan (1) Alcohol withdrawal seizure: PLAN: Plan RECOMMENDATIONS: 1. Continue supportive measures including phenobarbital taper and as needed Ativan. 2. Continue thiamine and folate. 3. Aggressive electrolyte repletion. 4. Continue current supplemental fluid hydration and recheck sodium level this afternoon. 5. Continue appropriate DVT prophylaxis. 6. The patient is without any current ICU needs. IMPRESSIONS: 1. Acute alcohol withdrawal with associated seizure The patient has an extensive alcohol abuse history. Continue current supportive measures including phenobarbital taper and as needed Ativan, along with thiamine and folate repletion. Maintain seizure precautions for now. 2. Hyponatremia/hypokalemia Likely related to chronic alcohol dependency. Sodium is improving with gentle IV fluid hydration. This will be continued without change. Continue to monitor electrolyte levels for now and replete if necessary. 3. Anemia/thrombocytopenia Likely secondary to chronic alcohol dependency. Continue to monitor blood counts daily. At the present time, there is no indication for transfusion of blood products. 4. History of hypertension/obesity Complicates care, management, recovery and prognosis. Okay to continue home medications as indicated. This note was generated with [employer] dictation software. It may contain incorrect words, spelling, and punctuation that were not noted in checking the note before signing. Subjective Subjective The patient was seen and examined at the bedside this morning. Events from the last 24 hours have been reviewed. The patient is currently afebrile, hemodynamically stable and maintaining appropriate oxygen saturations on room air. The patient is currently documented to be overall net +3 L for the hospitalization. Sodium level has improved from 113 at presentation to 123 this morning. The patient remains on normal saline, along with a phenobarbital taper and as needed Ativan. No history could be obtained from the patient this morning as he is quite somnolent, sleeping soundly in bed. Objective Data Objective Data The patient's most recent lab work, culture data and imaging studies have all been personally reviewed. Vital Signs: Vital Signs Temp Pulse Resp BP Pulse Ox O2 Del Method 98.1 F 77 20 H 114/73 97 Room Air 01/18/22 04:00 01/18/22 05:00 01/18/22 05:00 01/18/22 05:00 01/18/22 05:00 01/18/22 05:00 Oxygen Delivery Method Room Air Weight: 193 lb 5.526 oz Body Mass Index (BMI) 30.6 Intake & Output: Intake and Output for Last 24 Hours 01/16/22 01/17/22 01/18/22 23:59 23:59 23:59 Intake Total 2747 / 2747 1000 / 1000 Output Total 750 / 750 Balance 1996 1000 / 1000 Lab / Micro Data Attestation: I reviewed the patient's lab results. Result Diagrams: 01/18/22 04:20 01/18/22 11:55 Labs: Laboratory Results - last 24 hr 01/17/22 11:10: WBC 18.3 H, RBC 3.81 L, Hgb 13.3, Hct 33.8 L, MCV 88.7, MCH 34.9 H, MCHC 39.3 H, RDW Std Deviation 39.9, RDW Coeff of Stephon 12.3, Plt Count 186, MPV 10.3, Immature Gran % (Auto) 1.000 H, Neut % (Auto) 85.3 H, Lymph % (Auto) 3.5 L, [place] % (Auto) 9.9, Eos % (Auto) 0.2, Baso % (Auto) 0.1, Absolute Neuts (auto) 15.7 H, Absolute Lymphs (auto) 0.64 L, Nucleated RBC % 0, Atypical Lymphocytes 1+ 01/17/22 11:10: PT 13.7, INR 1.1, APTT 30.0 01/17/22 11:10: Sodium 113 L*, Potassium 3.1 L, Chloride 68 L*, Carbon Dioxide 18.0 L, Anion Gap 27 H, BUN 31 H, Creatinine 1.61 H, Estim Creat Clear Calc 65.44, Est GFR (MDRD) Af Amer 57 L, Est GFR (MDRD) Non-Af 47 L, BUN/Creatinine Ratio 19.3, Glucose 98, Calcium 9.0, Troponin I High Sens 367 H* 01/17/22 11:10: Ethyl Alcohol < 3.0 01/17/22 11:10: Magnesium 1.9, Total Bilirubin 2.50 H, Direct Bilirubin 0.78 H, AST 689 H, ALT 194 H, Alkaline Phosphatase 61, Total Protein 7.4, Albumin 3.7, Globulin 3.7 01/17/22 11:50: Urine Opiates Screen NEGATIVE, Urine Methadone Screen NEGATIVE, Ur Barbiturates Screen NEGATIVE, Ur Phencyclidine Scrn NEGATIVE, Ur Amphetamines Screen NEGATIVE, MDMA (Ecstasy) Screen NEGATIVE, U Benzodiazepines Scrn NEGATIVE, Urine Cocaine Screen NEGATIVE, U Cannabinoids Screen NEGATIVE, Ur Drug Screen Comment 01/17/22 11:50: Urine Color Yellow, Urine Clarity Sl. Cloudy, Urine pH 5.0, Ur Specific [place] 1.020, Urine Protein 30 H, Urine Glucose (UA) 50 H, Urine Ketones 150 A*, Urine Occult Blood 250 H, Urine Nitrite Negative, Urine Bilirubin Negative, Urine Urobilinogen Normal, Ur Leukocyte Esterase Negative, Urine RBC 0 SEEN, Urine WBC 0 SEEN, Ur Squamous Epith Cells 0 SEEN, Urine Bacteria 0 SEEN, Fine Granular Casts 0-5 SEEN, Urine Mucus 0 SEEN 01/17/22 14:30: Troponin I High Sens 235 H* 01/17/22 17:00: Troponin I High Sens 200 H* 01/18/22 04:20: WBC 8.5, RBC 3.11 L, Hgb 10.5 L, Hct 28.5 L, MCV 91.6, MCH 33.8 H, MCHC 36.8 H D, RDW Std Deviation 41.5, RDW Coeff of [place]phon 12.5, Plt Count 137 L, MPV 10.0, Immature Gran % (Auto) 0.600, Neut % (Auto) 74.5 H, Lymph % (Auto) 9.2 L, [place] % (Auto) 15.5 H, Eos % (Auto) 0.1, Baso % (Auto) 0.1, Absolute Neuts (auto) 6.3, Absolute Lymphs (auto) 0.78 L, Nucleated RBC % 0 01/18/22 04:20: Sodium 123 L, Potassium 2.7 L*, Chloride 84 L, Carbon Dioxide 22.0, Anion Gap 17 H, BUN 30 H, Creatinine 1.12, Estim Creat Clear Calc 65.67, Est GFR (MDRD) Af Amer 87, Est GFR (MDRD) Non-Af 72, BUN/Creatinine Ratio 26.8 H, Glucose 83, Calcium 7.7 L, Total Bilirubin 1.40 H, AST 438 H, ALT 159 H, Alkaline Phosphatase 51, Total Protein 6.3 L, Albumin 3.1 L, Globulin 3.2, Albumin/Globulin Ratio 1.0 Micro: Microbiology 01/17/22 11:17 Nasal Secretion SARS-CoV-2 Antigen (Rapid) - Final Radiography Diagnostic Testing: Radiology Impression Brain CT 01/17/22 11:01 IMPRESSION: Normal unenhanced CT scan of the brain. Electronically Signed: Lauren Pritchard MD at 11:37 EDT , ADDENDUM: 01/17/22 1144 IMPRESSION: Normal unenhanced CT scan of the brain. N.B. : The above Results were Read Back by Lauren Pritchard MD to Dr. Kin Mosley MD, and understanding confirmed on 01/17/2022 11:37:58 (ET). Electronically Signed: Lauren Pritchard MD at 11:37 EDT , Chest X-Ray 01/17/22 11:10 IMPRESSION: Degenerative changes, as described above. No demonstrated acute cardiopulmonary process. Electronically Signed: Lauren Pritchard MD at 12:58 EDT , Rhythm Strip Rhythm Strip: Sinus Rhythm Rate: 95 Ectopy: None Physical Exam Const Constitutional Narrative: Somnolent. Sleeping soundly in bed. HEENT normocephalic and head/scalp atraumatic Eyes PERRL and conjunctivae normal Neck supple General: trachea midline Chest inspection of chest normal Resp normal respiratory effort Auscultation: Negative for rales, rhonchi or wheezes Cardio regular rate and regular rhythm GI normal to inspection, nondistended, normoactive bowel sounds Extremity no clubbing, cyanosis or edema Skin no rashes or lesions noted Neuro no focal motor deficits Psych Mood & Affect: flat affect Charges/Coding Visit Charges Inpatient E&M: 80237 Subs Hosp L3
[2022-01-18] MEDS: Potassium Chloride 10mEq/100mL 10 MEQ/100 ML IV.SOLN. 100 MEQ IV BOLUS ×4 (07:20→10:42)
--- NOTE | 2022-01-18 07:33 | PN.HOSP_ITS ---
Subjective Subjective Follow-up for severe acute alcohol withdrawal syndrome with confusion, disorientation. Objective Data Objective Data Vital Signs: Vital Signs Temp Pulse Resp BP Pulse Ox O2 Del Method 98.1 F 73 18 124/76 H 98 Room Air 01/18/22 04:00 01/18/22 07:00 01/18/22 07:00 01/18/22 07:00 01/18/22 07:00 01/18/22 07:00 Oxygen Delivery Method Room Air Weight: 193 lb 5.526 oz Body Mass Index (BMI) 30.6 Intake & Output: Intake and Output for Last 24 Hours 01/16/22 01/17/22 01/18/22 23:59 23:59 23:59 Intake Total 2747 / 2747 1000 / 1000 Output Total 750 / 750 Balance 1996 1000 / 1000 Lab / Micro Data Result Diagrams: 01/18/22 04:20 01/18/22 04:20 Labs: Laboratory Results - last 24 hr 01/17/22 11:10: WBC 18.3 H, RBC 3.81 L, Hgb 13.3, Hct 33.8 L, MCV 88.7, MCH 34.9 H, MCHC 39.3 H, RDW Std Deviation 39.9, RDW Coeff of Stephon 12.3, Plt Count 186, MPV 10.3, Immature Gran % (Auto) 1.000 H, Neut % (Auto) 85.3 H, Lymph % (Auto) 3.5 L, [place] % (Auto) 9.9, Eos % (Auto) 0.2, Baso % (Auto) 0.1, Absolute Neuts (auto) 15.7 H, Absolute Lymphs (auto) 0.64 L, Nucleated RBC % 0, Atypical Lymphocytes 1+ 01/17/22 11:10: PT 13.7, INR 1.1, APTT 30.0 01/17/22 11:10: Sodium 113 L*, Potassium 3.1 L, Chloride 68 L*, Carbon Dioxide 18.0 L, Anion Gap 27 H, BUN 31 H, Creatinine 1.61 H, Estim Creat Clear Calc 65.44, Est GFR (MDRD) Af Amer 57 L, Est GFR (MDRD) Non-Af 47 L, BUN/Creatinine Ratio 19.3, Glucose 98, Calcium 9.0, Troponin I High Sens 367 H* 01/17/22 11:10: Ethyl Alcohol < 3.0 01/17/22 11:10: Magnesium 1.9, Total Bilirubin 2.50 H, Direct Bilirubin 0.78 H, AST 689 H, ALT 194 H, Alkaline Phosphatase 61, Total Protein 7.4, Albumin 3.7, Globulin 3.7 01/17/22 11:50: Urine Opiates Screen NEGATIVE, Urine Methadone Screen NEGATIVE, Ur Barbiturates Screen NEGATIVE, Ur Phencyclidine Scrn NEGATIVE, Ur Amphetamines Screen NEGATIVE, MDMA (Ecstasy) Screen NEGATIVE, U Benzodiazepines Scrn NEGA TIVE, Urine Cocaine Screen NEGATIVE, U Cannabinoids Screen NEGATIVE, Ur Drug Screen Comment 01/17/22 11:50: Urine Color Yellow, Urine Clarity Sl. Cloudy, Urine pH 5.0, Ur S pecific [place] 1.020, Urine Protein 30 H, Urine Glucose (UA) 50 H, Urine Ketones 150 A*, Urine Occult Blood 250 H, Urine Nitrite Negative, Urine Bilirubin Negative, Urine Urobilinogen Normal, Ur Leukocyte Esterase Negative, Urine RBC 0 SEEN, Urine WBC 0 SEEN, Ur Squamous Epith Cells 0 SEEN, Urine B acteria 0 SEEN, Fine Granular Casts 0-5 SEEN, Urine Mucus 0 SEEN 01/17/22 14:30: Troponin I High Sens 235 H* 01/17/22 17:00: Troponin I High Sens 200 H* 01/18/22 04:20: WBC 8.5, RBC 3.11 L, Hgb 10.5 L, Hct 28.5 L, MCV 91.6, MCH 33.8 H, MCHC 36.8 H D, RDW Std Deviation 41.5, RDW Coeff of Stephon 12.5, Plt Count 137 L , MPV 10.0, Immature Gran % (Auto) 0.600, Neut % (Auto) 74.5 H, Lymph % (Auto) 9.2 L, [place] % (Auto) 15.5 H, Eos % (Auto) 0.1, Baso % (Auto) 0.1, Absolute Neuts (auto) 6.3, Absolute Lymphs (auto) 0.78 L, Nucleated RBC % 0 01/18/22 04:20: Sodium 123 L, Potassium 2.7 L*, Chloride 84 L, Carbon Dioxide 22.0, Anion Gap 17 H, BUN 30 H, Creatinine 1.12, Estim Creat Clear Calc 65.67, Est GFR (MDRD) Af Amer 87, Est GFR (MDRD) Non-Af 72, BUN/Creatinine Ratio 26.8 H , Glucose 83, Calcium 7.7 L, Total Bilirubin 1.40 H, AST 438 H, ALT 159 H, Alkaline Phosphatase 51, Total Protein 6.3 L, Albumin 3.1 L, Globulin 3.2, Alb umin/Globulin Ratio 1.0 Micro: Microbiology 01/17/22 11:17 Nasal Secretion SARS-CoV-2 Antigen (Rapid) - Final Radiography Diagnostic Testing: Radiology Impression Brain CT 01/17/22 11:01 IMPRESSION: Normal unenhanced CT scan of the brain. Electronically Signed: Lauren Pritchard MD at 11:37 EDT Reading Location ID and State: [facility] hospital / [place] Tel , Service support , ADDENDUM: 01/17/22 1144 IMPRESSION: Normal unenhanced CT scan of the brain. N.B. : The above Results were Read Back by Lauren Pritchard MD to Dr. Kin Mosley MD, and understanding confirmed on 01/17/2022 11:37:58 (ET). Electronically Signed: Lauren Pritchard MD at 11:37 EDT Reading Location ID and State: Critical access hospital / [place] Tel , Service support , Chest X-Ray 01/17/22 11:10 IMPRESSION: Degenerative changes, as described above. No demonstrated acute cardiopulmonary process. Electronically Signed: Lauren Pritchard MD at 12:58 EDT , Rhythm Strip Rhythm Strip: Sinus Rhythm Rate: 95 Ectopy: None Physical Exam Narrative Seen and examined. Patient is sleeping. Heart rate and blood pressure controlled. Physical exam General: Sleeping. On selective on phenobarbital and Ativan as needed HEENT: Atraumatic, PERRLA, EOMI, Normocephalic Oral: No Gingival or Mucosal Lesions/ Ulcerations Neck: Supple, No JVD, Negative Carotid Bruits Lungs: Air entry diminished in bilateral lung bases. No crepitation/rhonchi Cardiovascular: Regular rate, Regular Rhythm, Normal S1, Normal S2, No murmurs Abdomen: Bowel Sounds Present, Soft, Non Tender, Non-Distended : No renal angle tenderness. No suprapubic tenderness. Extremities: No edema, Capillary Refill Less than 3 Seconds Skin: Small bruise on the left knee. No ulcer. No rash. Musculoskeletal: No Tenderness to Palpation of Joints or Extremities Neurological: DTR 2+/4, tone 2/4. Detailed neuro exam unobtainable as patient sleeping. Psych/Mental Status: sleeping. Assessment & Plan Assessment/Plan (1) Alcohol withdrawal seizure: (2) Hyponatremia: (3) Abnormal LFTs: PLAN: Plan This is 56-year-old man admitted with generalized weakness for 1 week along with episode of unresponsiveness for 1 day. 1. Acute alcohol withdrawal seizures in a known alcoholic, witnessed in the ED Last drink was 4 days prior to admission Heavy drinker- 42% vodka about a liter daily Previous history of similar presentation in 2017 with associated severe hyponatremia CT of the brain is unremarkable 01/18: Patient is being admitted in ICU. Intensive monitorin on the phenobarbital and Ativan as needed as per CIWA score alcohol withdrawal protocol 2. Severe hyponatremia, likely secondary to alcohol use, beer potomania, low solute intake, or chlorthalidone side effect or mixed Patient continued to take his chlorthalidone despite not feeling well. 01/18: Sodium improved from 113-123. Patient previous sodium was normal. On IV fluid normal saline. Urine electrolytes, serum osmolality, urine osmolality Sodium is 113, previous sodium was normal Check urine sodium, creatinine, osmolality, serum osmolality, TSH and serum cortisol ordered 3. Dehydration, admission creatinine of 1.61 patient with previous creatinine 1.44 Continue IV fluids normal saline. Creatinine is 1.12. 4. Severe hypokalemia and hypomagnesemia, Mg 1.9, hypophosphatemia 01/18: Repeat magnesium normal but phosphorus low. IV potassium phosphate ordered. 5. Elevated troponin likely demand/noncardiac related secondary to #1 EKG shows no acute ST-T changes Serial troponin shows downward trend. 6. Elevated transaminases secondary to alcohol use, most probably acute on chronic alcoholic hepatitis or acute alcoholic hepatitis. AST/ALT ratio more than 2?2 1. Transaminases are trending down. Alkaline phosphatase normal. Total bilirubin improving. Maddrey's discriminant function is 14.9. Liver ultrasound and hepatitis profile pending. No RUQ tenderness 7. Hypertension, relatively hypotensive, Hold chlorthalidone and irbesartan Continue on metoprolol with holding parameters 8. DVT prophylaxis?heparin subcu 01/17/22 11:10: Magnesium 1.9, Total Bilirubin 2.50 H, Direct Bilirubin 0.78 H, AST 689 H, ALT 194 H, Alkaline Phosphatase 61, Total Protein 7.4, Albumin 3.7, Globulin 3.7 01/17/22 11:50: Urine Opiates Screen NEGATIVE, Urine Methadone Screen NEGATIVE, Ur Barbiturates Screen NEGATIVE, Ur Phencyclidine Scrn NEGATIVE, Ur Amphetamines Screen NEGATIVE, MDMA (Ecstasy) Screen NEGATIVE, U Benzodiazepines Scrn NEGATIVE, Urine Cocaine Screen NEGATIVE, U Cannabinoids Screen NEGATIVE, Ur Drug Screen Comment 01/17/22 11:50: Urine Color Yellow, Urine Clarity Sl. Cloudy, Urine pH 5.0, Ur Specific [place] 1.020, Urine Protein 30 H, Urine Glucose (UA) 50 H, Urine Ketones 150 A*, Urine Occult Blood 250 H, Urine Nitrite Negative, Urine Bilirubin Negative, Urine Urobilinogen Normal, Ur Leukocyte Esterase Negative, Urine RBC 0 SEEN, Urine WBC 0 SEEN, Ur Squamous Epith Cells 0 SEEN, Urine Bacteria 0 SEEN, Fine Granular Casts 0-5 SEEN, Urine Mucus 0 SEEN 01/17/22 14:10: Hepatitis A IgM Ab Pending, Hep Bs Antigen Pending, Hep B Core IgM Ab Pending, Hepatitis C Ab (EIA) Pending 01/17/22 14:30: Troponin I High Sens 235 H* 01/17/22 17:00: Troponin I High Sens 200 H* 01/18/22 04:20: WBC 8.5, RBC 3.11 L, Hgb 10.5 L, Hct 28.5 L, MCV 91.6, MCH 33.8 H, MCHC 36.8 H D, RDW Std Deviation 41.5, RDW Coeff of Stephon 12.5, Plt Count 137 L , MPV 10.0, Immature Gran % (Auto) 0.600, Neut % (Auto) 74.5 H, Lymph % (Auto) 9.2 L, [place] % (Auto) 15.5 H, Eos % (Auto) 0.1, Baso % (Auto) 0.1, Absolute Neuts (auto) 6.3, Absolute Lymphs (auto) 0.78 L, Nucleated RBC % 0 01/18/22 04:20: Sodium 123 L, Potassium 2.7 L*, Chloride 84 L, Carbon Dioxide 22.0, Anion Gap 17 H, BUN 30 H, Creatinine 1.12, Estim Creat Clear Calc 65.67, Est GFR (MDRD) Af Amer 87, Est GFR (MDRD) Non-Af 72, BUN/Creatinine Ratio 26.8 H , Glucose 83, Calcium 7.7 L, Total Bilirubin 1.40 H, AST 438 H, ALT 159 H, Alkaline Phosphatase 51, Total Protein 6.3 L, Albumin 3.1 L, Globulin 3.2, Albumin/Globulin Ratio 1.0 01/18/22 04:20: Phosphorus 2.2 L, Magnesium 2.5 Charges/Coding Visit Charges Inpatient E&M: 16349 Init Hosp L3
[2022-01-18 08:15] LABS: Magnesium 2.5 mg/dL (1.6-2.6); Phosphorus 2.2 mg/dL (2.5-4.9)
[2022-01-18] MEDS: Aspirin E.C. 81 MG Tablet PO (08:34)
[2022-01-18] MEDS: Folic Acid 1 MG Tablet PO (08:34)
[2022-01-18 09:06] LABS: Bedside Glucose 99 mg/dL (74-106)
[2022-01-18] MEDS: Phenol/Sodium Phenolate 180ML 3 SPRAY MUCOUS MEM ×4 (09:12→21:22)
--- NOTE | 2022-01-18 09:21 | NURSING ---
updated on POC, stated that she would come in later today
[2022-01-18] MEDS: Metoprolol(XL)Succ 25 MG Tablet PO ×2 (09:43→21:22)
[2022-01-18] MEDS: Thiamine Hydrochloride 100 MG Tablet PO (09:43)
--- NOTE | 2022-01-18 09:50 | CASEMGMT ---
CORI IPCHARDO Face to Face with patient for initial transition planning/care coordination assessment. CORI PICHARDO introduced self and role at [facility]. Patient lying in bed, alert and oriented. Patient willing to participate in assessment and is able to answer all questions appropriately. Care providers, pharmacy, and demographics verified. Patient wishes to discharge home, denies need for home health at this time. Patient states he has no further needs or concerns at this time. CM to follow for discharge planning needs that may arise. PCP: Jose Carlos Specialists: [facility]: [facility] Insurance: [place] Prescription Benefit: yes Living Will/HPOA: none LNOK: Living Arrangements: Patient lives with in a 1.5 story home with bed and bath on first floor, 3 steps and railing to enter the home. Patient states he is independent at home. Transportation: self, DME/HHC: patient states he has grab bars at home. Patient states he chews tobacco products. Patient state he drinks 1-2 5th of vodka daily. No other drug use. Patient states he is wanting to quick and voiced interested in talking with addiction counselor. CORI PICHARDO updated JL Bunch regarding request to speak with addiction counselor. Disposition Plan: Patient to discharge home with family support and follow-up plans in place. Elizabeth NOLASCO, RN, CM
--- NOTE | 2022-01-18 10:26 | CASEMGMT ---
Social Work SW made referral to Brigid, Addiction therapist. Brigid updated that per RNCM, pt is interested in alcohol recovery. MICAH Sullivan
--- NOTE | 2022-01-18 11:14 | SEPSISATNOTE ---
Sepsis Attestation Sepsis Alert: Yes (No focus of infection.) Sepsis Attestation: Sepsis Ruled Out (The patient has alcohol withdrawal therefore sometimes mild tachypnea. No tachycardia, tachypnea or hypoxia. No clinically obvious focus of infection. Sepsis ruled out.) Date exam was performed: 01/18/22 Time exam was performed: 11:00
[2022-01-18 12:21] LABS: Sodium Level 125 mmol/L (136-145)
[2022-01-18 12:40] LABS: Thyroid Stim Hormone (TSH) 0.36 uIU/mL (0.358-3.74)
[2022-01-18 12:58] LABS: Osmolality, Serum 261 mOsm/KG (275-295)
[2022-01-18 13:21] LABS: Pathologist Review Reviewed
[2022-01-18 13:54] LABS: Urine Chloride 71 mmol/L (Not Establ.); Urine Sodium 53 mmol/L (Not Establ.)
[2022-01-18 14:28] LABS: Osmolality, Urine 319 mOsm/KG
[2022-01-18] MEDS: 0.9% Normal Saline 1,000 ML 100 ML IV (18:55)
[2022-01-19] VITALS (7 sets, daily range): BP systolic 116–129; BP diastolic 76–95; PULSE 80–95; RESP 15–18; TEMP 36.8–37.2; O2SAT 96–98
[2022-01-19] MEDS: Phenol/Sodium Phenolate 180ML 3 SPRAY MUCOUS MEM ×4 (00:11→14:46)
[2022-01-19] MEDS: Phenobarbital 32.4 MG Tablet PO ×6 (03:11→21:53)
[2022-01-19] MEDS: 0.9% Normal Saline 1,000 ML 100 ML IV ×2 (04:16→14:36)
--- NOTE | 2022-01-19 05:46 | PCM.PN.INT ---
Assessment & Plan Assessment/Plan (1) Alcohol withdrawal seizure: PLAN: Plan RECOMMENDATIONS: 1. Continue supportive measures including phenobarbital taper and as needed Ativan. 2. Continue thiamine and folate. 3. Check BMP, magnesium and phosphorus. 4. Continue current supplemental fluid hydration. 5. Continue appropriate DVT prophylaxis. IMPRESSIONS: 1. Acute alcohol withdrawal with associated seizure The patient has an extensive alcohol abuse history. Continue current supportive measures including phenobarbital taper and as needed Ativan, along with thiamine and folate repletion. Maintain seizure precautions for now. 2. Hyponatremia/hypokalemia Likely related to chronic alcohol dependency. Sodium is improving with gentle IV fluid hydration. This will be continued without change. Continue to monitor electrolyte levels for now and replete if necessary. 3. Anemia/thrombocytopenia Likely secondary to chronic alcohol dependency. Continue to monitor blood counts daily. At the present time, there is no indication for transfusion of blood products. 4. History of hypertension/obesity Complicates care, management, recovery and prognosis. Okay to continue home medications as indicated. This note was generated with [employer] dictation software. It may contain incorrect words, spelling, and punctuation that were not noted in checking the note before signing. Subjective Subjective The patient was seen and examined at the bedside this morning. Events from the last 24 hours have been reviewed. The patient is currently afebrile, hemodynamically stable and maintaining appropriate oxygen saturations on room air. Last CIWA score was noted to be 3. The patient surinder on phenobarbital, thiamine and folic acid. Objective Data Objective Data The patient's most recent lab work, culture data and imaging studies have all been personally reviewed. Vital Signs: Vital Signs Temp Pulse Resp BP Pulse Ox O2 Del Method 98.3 F 87 18 121/95 H 96 Room Air 01/19/22 03:10 01/19/22 03:10 01/19/22 03:10 01/19/22 03:10 01/19/22 03:10 01/19/22 03:10 Oxygen Delivery Method Room Air Weight: 186 lb 1.122 oz Body Mass Index (BMI) 30.6 Intake & Output: Intake and Output for Last 24 Hours 01/17/22 01/18/22 01/19/22 23:59 23:59 23:59 Intake Total 2747 / 2747 4507.5033 / 4507.5033 935 / 935 Output Total 750 / 750 4075 / 4075 Balance 19961619 957.5554 / 432.5033 935 / 935 Lab / Micro Data Attestation: I reviewed the patient's lab results. Result Diagrams: 01/18/22 04:20 01/18/22 11:55 Labs: Laboratory Results - last 24 hr 01/17/22 10:50: POC Glucose 99 01/17/22 11:10: Diff Path Review Reviewed 01/18/22 04:20: Phosphorus 2.2 L, Magnesium 2.5 01/18/22 11:55: Sodium 125 L 01/18/22 11:55: Serum Osmolality 261 L 01/18/22 11:55: TSH 0.36 01/18/22 11:55: Cortisol 26.40 H 01/18/22 13:25: Urine Osmolality 319, Ur Random Sodium 53, Urine Creatinine 29.40, Urine Potassium 14.0, Urine Chloride 71 Micro: Microbiology 01/17/22 11:17 Nasal Secretion SARS-CoV-2 Antigen (Rapid) - Final Radiography Diagnostic Testing: Radiology Impression Liver Ultrasound 01/18/22 05:55 IMPRESSION: Fatty liver, no discrete lesion Echogenic sludge in the gallbladder, no sonographic evidence of cholecystitis Echogenic pancreas Simple hepatic cyst, no specific follow-up needed Electronically Signed: uRslan Avilez MD at 12:18 EDT Reading Location ID and State: [facility] / [place] , Service support , Rhythm Strip Rhythm Strip: Sinus Rhythm Rate: 95 Ectopy: None Physical Exam Const no apparent distress Constitutional Narrative: Once again sleeping soundly. HEENT normocephalic and head/scalp atraumatic Eyes PERRL and conjunctivae normal Neck supple General: trachea midline Chest inspection of chest normal Resp normal respiratory effort Auscultation: Negative for rales, rhonchi or wheezes Cardio regular rate and regular rhythm GI normal to inspection, nondistended, normoactive bowel sounds Extremity no clubbing, cyanosis or edema Skin no rashes or lesions noted Neuro no focal motor deficits Psych Mood & Affect: flat affect Charges/Coding Visit Charges Inpatient E&M: 67924 Subs Hosp L2
[2022-01-19] MEDS: Heparin Injection (Vial) 5,000 UNIT/ML VIAL 5000 UNIT SC ×3 (06:53→21:54)
[2022-01-19 08:08] LABS: HEPATITIS B SURFACE AG Negative (Negative); Hep C Antibodies <0.1 s/co ratio (0.0-0.9); Hepatitis A IgM Antibody Negative (Negative); Hepatitis B Core AB IgM Negative (Negative)
[2022-01-19] MEDS: Aspirin E.C. 81 MG Tablet PO (08:54)
[2022-01-19] MEDS: Thiamine Hydrochloride 100 MG Tablet PO (08:54)
[2022-01-19] MEDS: Folic Acid 1 MG Tablet PO (08:54)
[2022-01-19] MEDS: Metoprolol(XL)Succ 25 MG Tablet PO ×2 (08:55→21:54)
[2022-01-19 09:32] LABS: Anion Gap 11 (5-15); BUN 13 mg/dL (7-18); BUN/Creat Ratio 16.2 RATIO (10-20); Calcium,Total 8.6 mg/dL (8.5-10.1); Chloride 87 mmol/L (98-107); EST Glomerular Filtration Rate 105 mL/min (>60); Est Glom Filt Rate - Afr Amer 127 mL/min (>60); Estimated Creatinine Clearance 91.93 ml/min; Glucose 96 mg/dL (74-106); Magnesium 2.3 mg/dL (1.6-2.6); Phosphorus 2.1 mg/dL (2.5-4.9); Potassium 3.2 mmol/L (3.5-5.1); Sodium Level 130 mmol/L (136-145)
--- NOTE | 2022-01-19 11:20 | ADDICTION ---
This content writer met with PT to conduct ASAM, MSE, DUDIT assessments and to plan for d/c. PT declined all assessments and d/c planning noting that he will follow up if he feels that he needs it and he knows his rights to refuse. This content writer encouraged PT to schedule an appointment but PT declined again.
--- NOTE | 2022-01-19 14:53 | NURSING ---
scanner and keyboard stopped working during med [employer]. Tried unplugging and restarting computer and it still would not work.
--- NOTE | 2022-01-19 16:17 | PCM.PN.HOSP ---
Subjective Subjective Follow-up for acute alcohol withdrawal syndrome. Patient alcohol withdrawal symptoms are controlled. No further seizure in ICU or on the floor. Objective Data Objective Data Vital Signs: Vital Signs Temp Pulse Resp BP Pulse Ox O2 Del Method 98.8 F 81 15 129/86 H 98 Room Air 01/19/22 10:00 01/19/22 10:00 01/19/22 10:00 01/19/22 10:00 01/19/22 10:00 01/19/22 10:00 Oxygen Delivery Method Room Air Weight: 186 lb 1.122 oz Body Mass Index (BMI) 30.6 Intake & Output: Intake and Output for Last 24 Hours 01/17/22 01/18/22 01/19/22 23:59 23:59 23:59 Intake Total 2747 / 2747 4507.5033 / 4507.5033 2535 / 2535 Output Total 750 / 750 4075 / 4075 900 / 900 Balance 1996 / 5973 310.4466 / 432.5033 1635 / 1635 Lab / Micro Data Result Diagrams: 01/18/22 04:20 01/19/22 08:45 Labs: Laboratory Results - last 24 hr 01/17/22 14:10: Hepatitis A IgM Ab Negative, Hep Bs Antigen Negative, Hep B Core IgM Ab Negative, Hepatitis C Ab (EIA) <0.1, Hep C Ab Comment Comment 01/19/22 08:45: Sodium 130 L, Potassium 3.2 L, Chloride 87 L, Carbon Dioxide 32.0, Anion Gap 11, BUN 13, Creatinine 0.80, Estim Creat Clear Calc 91.93, Est GFR (MDRD) Af Amer 127, Est GFR (MDRD) Non-Af 105, BUN/Creatinine Ratio 16.2, Glucose 96, Calcium 8.6, Phosphorus 2.1 L, Magnesium 2.3 Micro: Microbiology 01/17/22 11:17 Nasal Secretion SARS-CoV-2 Antigen (Rapid) - Final Rhythm Strip Rhythm Strip: Sinus Rhythm Rate: 95 Ectopy: None Physical Exam Narrative Seen and examined. Physical exam General: Le.?3. HEENT: Atraumatic, PERRLA, EOMI, Normocephalic Oral: No Gingival or Mucosal Lesions/ Ulcerations Neck: Supple, No JVD, Negative Carotid Bruits Lungs:? Air entry diminished in bilateral lung bases.? No crepitation/rhonchi Cardiovascular: Regular rate, Regular Rhythm, Normal S1, Normal S2, No murmurs Abdomen: Bowel Sounds Present, Soft, Non Tender, Non-Distended : No renal angle tenderness.? No suprapubic tenderness. Extremities: No edema, Capillary Refill Less than 3 Seconds Skin: Small bruise on the left knee.? No ulcer.? No rash. Musculoskeletal: No Tenderness to Palpation of Joints or Extremities Neurological:? DTR? 2+/4, tone 2/4.? Muscle strength 5/5 at major joints. No seizures. Psych/Mental Status:?Flat affect. No hallucination delusion or illusion Assessment & Plan Assessment/Plan (1) Alcohol withdrawal seizure: PLAN: Plan This is 56-year-old man admitted with generalized weakness for 1 week along with episode of unresponsiveness for 1 day. 1. Acute alcohol withdrawal seizures in a known alcoholic, witnessed in the ED Last drink was 4 days prior to admission Heavy drinker- 42% vodka about a liter daily Previous history of similar presentation in 2017 with associated severe hyponatremia CT of the brain is unremarkable 01/18: Patient admitted in ICU.? Intensive monitorin on the phenobarbital and Ativan as needed as per CIWA score alcohol withdrawal protocol. Transfer to [facility]. 01/19: Seizures are well controlled. Patient on phenobarbital taper. Discussed with the 180 closing manager, RN. Patient refused for inpatient drug rehab. Encourage solute intake. 2. Severe hyponatremia, likely secondary to alcohol use, beer potomania, low solute intake, or chlorthalidone side effect or mixed Patient continued to take his chlorthalidone despite not feeling well. 01/18: Sodium improved from 113-123.? Patient previous sodium was normal.? On IV fluid normal saline.? Urine electrolytes, serum osmolality, urine osmolality Sodium is 113, previous sodium was normal Check urine sodium, creatinine, osmolality, serum osmolality, TSH and serum cortisol ordered 01/19: Serum sodium is 130. Electrolytes are getting replaced. 3. Dehydration, admission creatinine of 1.61 patient with previous creatinine 1.44 Continue IV fluids normal saline.? Creatinine is 1.12. Clinical Impression(s) from Imaging Studies Brain CT 01/17/22 11:01 IMPRESSION: Normal unenhanced CT scan of the brain. Chest X-Ray 01/17/22 11:10 IMPRESSION: Degenerative changes, as described above. No demonstrated acute cardiopulmonary process. Liver Ultrasound 01/18/22 05:55 IMPRESSION: Fatty liver, no discrete lesion Echogenic sludge in the gallbladder, no sonographic evidence of cholecystitis Echogenic pancreas Simple hepatic cyst, no specific follow-up needed 01/19: Discontinue IV fluid. 4.? Severe hypokalemia and hypomagnesemia, Mg 1.9, hypophosphatemia 01/18: Repeat magnesium normal but phosphorus low.? IV potassium phosphate ordered. 01/19: Phosphorus 2.1, magnesium 2.3. K3.2. Labs shows hypokalemia, hypophosphatemia and hyponatremia. IV potassium phosphate ordered. 5. Elevated troponin likely demand/noncardiac related secondary to #1 EKG shows no acute ST-T changes Serial troponin shows downward trend. 6. Elevated transaminases secondary to alcohol use, most probably acute on chronic alcoholic hepatitis or acute alcoholic hepatitis.? AST/ALT ratio more than 2?2 1.? Transaminases are trending down.? Alkaline phosphatase normal.? Total bilirubin improving. Maddrey's discriminant function is 14.9.? Liver ultrasound and hepatitis profile pending.? No RUQ tenderness 01/19: Liver ultrasound shows fatty liver with echogenic sludge in GB but no evidence of cholecystitis. Patient does not have RUQ tenderness. Echogenic pancreas probably fatty change from chronic alcohol use. Monitor liver chemistry. 7. Hypertension, relatively hypotensive, Hold chlorthalidone and irbesartan Continue on metoprolol with holding parameters 8. DVT prophylaxis?heparin subcu Microbiology Past 72 Hours 01/17/22 11:17 Nasal Secretion SARS-CoV-2 Antigen (Rapid) - Final Laboratory Results 01/17/22 14:10: Hepatitis A IgM Ab Negative, Hep Bs Antigen Negative, Hep B Core IgM Ab Negative, Hepatitis C Ab (EIA) <0.1, Hep C Ab Comment Comment 01/19/22 08:45: Sodium 130 L, Potassium 3.2 L, Chloride 87 L, Carbon Dioxide 32.0, Anion Gap 11, BUN 13, Creatinine 0.80, Estim Creat Clear Calc 91.93, Est GFR (MDRD) Af Amer 127, Est GFR (MDRD) Non-Af 105, BUN/Creatinine Ratio 16.2, Glucose 96, Calcium 8.6, Phosphorus 2.1 L, Magnesium 2.3 Charges/Coding Visit Charges Inpatient E&M: 60199 Subs Hosp L2
[2022-01-19] MEDS: NYSTATIN 500,000 UNIT/5 ML UDC 500000 UNIT PO ×2 (18:02→21:54)
[2022-01-20] VITALS (7 sets, daily range): BP systolic 135–138; BP diastolic 81–101; PULSE 67–87; RESP 16–18; TEMP 36.6–37.2; O2SAT 97–100
[2022-01-20] MEDS: Heparin Injection (Vial) 5,000 UNIT/ML VIAL 5000 UNIT SC ×3 (04:27→21:23)
[2022-01-20] MEDS: Phenobarbital 32.4 MG Tablet PO ×2 (04:28→09:30)
[2022-01-20 05:46] LABS: ALB/GLOB Ratio 0.9 RATIO (0.9-2.4); AST(SGOT) 182 U/L (15-37); Alanine Aminotransfer ALT/SGPT 122 U/L (16-61); Albumin, Serum 3.1 g/dL (3.2-5.0); Alkaline Phosphatase 54 U/L (45-117); Anion Gap 9 (5-15); BUN 11 mg/dL (7-18); BUN/Creat Ratio 13.3 RATIO (10-20); Calcium,Total 8.5 mg/dL (8.5-10.1); Chloride 89 mmol/L (98-107); Creatinine, Serum 0.83 mg/dL (0.70-1.30); EST Glomerular Filtration Rate 102 mL/min (>60); Est Glom Filt Rate - Afr Amer 123 mL/min (>60); Estimated Creatinine Clearance 88.61 ml/min; Globulin 3.3 g/dL (2.2-4.2); Glucose 103 mg/dL (74-106); Phosphorus 2.2 mg/dL (2.5-4.9); Protein, Total 6.4 g/dL (6.4-8.2); Sodium Level 130 mmol/L (136-145)
--- NOTE | 2022-01-20 08:00 | DCINST_ITS ---
Discharge Instructions Diet Discharge Diet: No restrictions Activity Discharge Activity: Return to Normal Activity and May Not Drive Dressing / Incision Call your doctor if you observe: Fever of 101 or Higher, Coldness, Increased Pain, Numbness or Tingling, Change in Color, Inability to urinate, Inability to have a bowel movement, Shortness of breath, Dizziness, Fainting spells, Swelling in the ankles, Chest pain, Prolonged hiccupping, Increased palpitations (irregular heartbeat), Calf discomfort and Uncontrolled pain Follow Up Care Test Results: Test results from this visit will be discussed in further detail at your follow- up appointment, if applicable. Discharge Plan Admission Admit Date/Time: 01/17/22 12:39 Primary Reason for Your Visit: Acute alcohol withdrawal seizure Attending Provider: Erik Olmstead Primary Care Provider: Jourdan Branch Consulting Providers: Dania Lopes ; Alphonse Turner ; Ismael Serna ; Chip Steele ; Roma Geller GAS DERRICK OPERATOR Discharge Orders/Prescriptions Prescriptions: New nystatin 100,000 unit/mL Suspension 500,000 unit PO 4X/DAY Qty: 200 0RF thiamine HCl (vitamin B1) [Vitamin B-1] 100 mg Tablet 100 mg PO DAILYCM Qty: 30 2RF folic acid 1 mg Tablet 1 mg PO DAILY@0800 Qty: 30 2RF pantoprazole [Protonix] 40 mg tablet,delayed release (DR/EC) 40 mg PO DAILY Qty: 30 1RF potassium, sodium phosphates 280-160-250 mg Powder In Packet 1 packet PO TID 3 Days Qty: 9 0RF Continued aspirin [Aspir-Low] 81 MG tablet,delayed release (DR/EC) 81 mg PO DAILY Qty: 1 0RF chlorthalidone 25 mg Tablet 25 mg PO DAILY metoprolol succinate 25 mg tablet extended release 24 hr 25 mg PO BID irbesartan [Avapro] 150 mg Tablet 150 mg PO DAILY Referrals / Follow Up: Jourdan Branch MD [Primary Care Provider] - FriendChivo DO [Med Staff - Active Staff] - Within 1 Month (For alcoholic hepatitis) Disposition Disposition (needs filled in before D/C Order can be placed): Home Health Service
--- NOTE | 2022-01-20 08:09 | PCM.PN.INT ---
Assessment & Plan Assessment/Plan (1) Alcohol withdrawal seizure: PLAN: Plan RECOMMENDATIONS: 1. Continue supportive measures including phenobarbital taper and as needed Ativan. 2. Continue thiamine and folate. 3. Ongoing electrolyte repletion as needed. 4. Continue current supplemental fluid hydration. 5. Continue appropriate DVT prophylaxis. 6. Given the patient's lack of ICU or pulmonary needs, will sign off. Please call with any additional questions. IMPRESSIONS: 1. Acute alcohol withdrawal with associated seizure The patient has an extensive alcohol abuse history. Continue current supportive measures including phenobarbital taper and as needed Ativan, along with thiamine and folate repletion. Maintain seizure precautions for now. 2. Hyponatremia/hypokalemia Likely related to chronic alcohol dependency. Sodium is improving with gentle IV fluid hydration. This will be continued without change. Continue to monitor electrolyte levels for now and replete if necessary. 3. Anemia/thrombocytopenia Likely secondary to chronic alcohol dependency. Continue to monitor blood counts daily. At the present time, there is no indication for transfusion of blood products. 4. History of hypertension/obesity Complicates care, management, recovery and prognosis. Okay to continue home medications as indicated. This note was generated with [employer] dictation software. It may contain incorrect words, spelling, and punctuation that were not noted in checking the note before signing. Subjective Subjective The patient was seen and examined at the bedside this morning. Events from the last 24 hours have been reviewed. The patient is currently afebrile, hemodynamically stable and maintaining appropriate oxygen saturations on room air. Sodium has improved to 130 with a potassium of 3.0 and chloride of 89. Objective Data Objective Data The patient's most recent lab work, culture data and imaging studies have all been personally reviewed. Vital Signs: Vital Signs Temp Pulse Resp BP Pulse Ox O2 Del Method 98.9 F 74 18 138/97 H 100 Room Air 01/20/22 04:24 01/20/22 04:24 01/20/22 04:24 01/20/22 04:24 01/20/22 04:24 01/20/22 07:07 Oxygen Delivery Method Room Air Weight: 188 lb 7.924 oz Body Mass Index (BMI) 30.6 Intake & Output: Intake and Output for Last 24 Hours 01/18/22 01/19/22 01/20/22 23:59 23:59 23:59 Intake Total 4507.5033 / 4507.5033 3333.33 / 3333.33 513.3333 / 513.3333 Output Total 4075 / 4075 3300 / 3300 600 / 600 Balance 432.5033 / 432.5033 33.33 / 33.33 -86.6667 / -86.6667 Lab / Micro Data Attestation: I reviewed the patient's lab results. Result Diagrams: 01/18/22 04:20 01/20/22 04:18 Labs: Laboratory Results - last 24 hr 01/17/22 14:10: Hepatitis A IgM Ab Negative, Hep Bs Antigen Negative, Hep B Core IgM Ab Negative, Hepatitis C Ab (EIA) <0.1, Hep C Ab Comment Comment 01/19/22 08:45: Sodium 130 L, Potassium 3.2 L, Chloride 87 L, Carbon Dioxide 32.0, Anion Gap 11, BUN 13, Creatinine 0.80, Estim Creat Clear Calc 91.93, Est GFR (MDRD) Af Amer 127, Est GFR (MDRD) Non-Af 105, BUN/Creatinine Ratio 16.2, Glucose 96, Calcium 8.6, Phosphorus 2.1 L, Magnesium 2.3 01/20/22 04:18: Sodium 130 L, Potassium 3.0 L, Chloride 89 L, Carbon Dioxide 32.0, Anion Gap 9, BUN 11, Creatinine 0.83, Estim Creat Clear Calc 88.61, Est GFR (MDRD) Af Amer 123, Est GFR (MDRD) Non-Af 102, BUN/Creatinine Ratio 13.3, Glucose 103, Calcium 8.5, Phosphorus 2.2 L, Total Bilirubin 0.60, AST 182 H, ALT 122 H, Alkaline Phosphatase 54, Total Protein 6.4, Albumin 3.1 L, Globulin 3.3, Albumin/Globulin Ratio 0.9 Micro: Microbiology 01/17/22 11:17 Nasal Secretion SARS-CoV-2 Antigen (Rapid) - Final Radiography Diagnostic Testing: Radiology Impression Liver Ultrasound 01/18/22 05:55 IMPRESSION: Fatty liver, no discrete lesion Echogenic sludge in the gallbladder, no sonographic evidence of cholecystitis Echogenic pancreas Simple hepatic cyst, no specific follow-up needed Electronically Signed: Ruslan Avilez MD at 12:18 EDT , Rhythm Strip Rhythm Strip: Sinus Rhythm Rate: 95 Ectopy: None Physical Exam Const no apparent distress General Appearance: cooperative HEENT normocephalic and head/scalp atraumatic Eyes PERRL and conjunctivae normal Neck supple General: trachea midline Chest inspection of chest normal Resp normal respiratory effort Auscultation: Negative for rales, rhonchi or wheezes Cardio regular rate and regular rhythm GI normal to inspection, nondistended, normoactive bowel sounds Extremity no clubbing, cyanosis or edema Skin no rashes or lesions noted Neuro moves all extremities and no focal motor deficits Psych Mood & Affect: flat affect Charges/Coding Visit Charges Inpatient E&M: 65309 Subs Hosp L2
[2022-01-20] MEDS: Aspirin E.C. 81 MG Tablet PO (09:30)
[2022-01-20] MEDS: Thiamine Hydrochloride 100 MG Tablet PO (09:30)
[2022-01-20] MEDS: Metoprolol(XL)Succ 25 MG Tablet PO ×2 (09:30→21:27)
[2022-01-20] MEDS: Folic Acid 1 MG Tablet PO (09:30)
[2022-01-20] MEDS: NYSTATIN 500,000 UNIT/5 ML UDC 500000 UNIT PO ×4 (09:31→21:23)
--- NOTE | 2022-01-20 09:35 | CASEMGMT ---
Addendum entered by Janie Madden 01/20/22 15:55: TC to pt , she states that pt will have someone hands on 24-48 hours post dc. She is aware pt is requesting that HHC not be set up for homegoing at this time but pt has a list of agencies who accept his insurance and this can be set up by PCP if pt allows. She states she will have a nice talk with patient when she arrives. She denies further needs. Addendum entered by Janie Madden 01/20/22 14:31: CORI PICHARDO spoke with therapy again who states pt is unsafe to return home today unless he has hands on care for the next 24-48 hours. States she discussed with pt son at bedside and pt on the phone. CORI PICHARDO in to pt room, pt states he has not decided anything and does not want his to be called again as she is at work. Pt states he does not have a plan. Made him aware that we need to plan for his dc. SW to meet with pt. Addendum entered by Janie Madden 01/20/22 10:17: CORI PICHARDO back into pt room, pt lying in bed. Pt states he has not chosen a HHC agency and does not plan to. He states this will have to wait. Pt states he does not want to be set up with C at this time. He is aware he can follow up with his PCP to set up. Pt states this is what he will do. Pt is aware that if he changes his mind before he leaves to notify the CORI PICHARDO. Original Note: CORI PICHARDO discussed pt status with pt nurse as well as PT who eval'd pt yesterday. Pt safe to return home with C. CORI PICHARDO in to pt room, discussed how pt did with therapy yesterday and how he feels regarding going home. Pt adamantly denies need for SNF. Discussed outpt vs HHC with pt. Pt does not feel strong enough to be able to get to outpt therapy. Pt is agreeable to HHC. Patient was provided a list of HHC providers including quality and resource use data and consistent with the patient?s preferred geographic region, medical needs, and insurance network were provided from the [employer] Guide. Pt to review list and CORI PICHARDO to check back with choices. Updated hospitalist.
[2022-01-20] MEDS: Na Biphos/Potassium Phosphate PACKET 1 PACKET PO ×3 (09:38→21:23)
--- NOTE | 2022-01-20 10:46 | PHA.DC.MC ---
Pharmacy Service has performed discharge medication reconciliation and counseling for this patient. Patient requested meds to beds, this [facility] called retail and made the request. 1. FOLIC ACID 1MG PO DAILYCM 2. NYSTATIN 500,000 PO 4X/DAY 3. PANTOPRAZOLE 40MG PO DAILY 4. THIAMINE 100MG PO DAILYCM The patient's discharge medication list was reviewed for discrepancies and discrepancies were resolved. Home Medications aspirin 81 mg tablet,delayed release (Aspir-Low) 81 mg PO DAILY ##1 09/27/16 chlorthalidone 25 mg tablet 25 mg PO DAILY 01/17/22 irbesartan 150 mg tablet (Avapro) 150 mg PO DAILY 01/17/22 metoprolol succinate 25 mg tablet,extended release 24 hr 25 mg PO BID 01/17/22 folic acid 1 mg tablet 1 mg PO DAILY@0800 #30 tabs 01/20/22 nystatin 100,000 unit/mL oral suspension 500,000 unit (5 mL) PO 4X/DAY #200 mL 01/20/22 pantoprazole 40 mg tablet,delayed release (Protonix) 40 mg PO DAILY #30 tabs 01/20/22 potassium, sodium phosphates 280 mg-160 mg-250 mg oral powder packet 1 packet PO TID 3 days #9 ea 01/20/22 thiamine HCl (vitamin B1) 100 mg tablet (Vitamin B-1) 100 mg PO DAILYCM #30 tabs 01/20/22 The patient was counseled on the following discharge medications and changes in medications for homegoing were reviewed. The Reason for Use, instructions for use, and potential side effects were reviewed for all new medications. The patient's questions regarding all of their medications were answered. The patient was able to verbally demonstrate an understanding of their discharge medications. Patient counseled by clinical pharmacy specialistFreeman.
--- NOTE | 2022-01-20 14:45 | CASEMGMT ---
Social Work SW met with pt following report from RNCM and Physical therapist who has recommended pt go to SNF for therapy and rehabilitation. SW in to speak with pt. Pt resting in bed, sitting up. Pt agreeable to speak with this SW. SW introduce self and role at the hospital. A printed list of SNF providers including quality and resources use date that is consistent with patient's preferred geographical region, medical needs, and insurances network were provided via the [employer] Guide Link.?Pt stated I am going home. I will take this list but I'm not going anywhere but home. Pt refused to give choice of SNF. SW attempted to offer education on dangers of discharging home in current condition, against recommendation of physical therapist and Dr. Pt still adamant going home. SW encouraged pt to reach out to SW via nurse if changes mind. MICAH Vargas
--- NOTE | 2022-01-20 16:57 | PN.HOSP_ITS ---
Objective Data Objective Data Vital Signs: Vital Signs Temp Pulse Resp BP Pulse Ox O2 Del Method 97.2 F L 88 18 134/98 H 98 Room Air 01/21/22 04:30 01/21/22 04:30 01/21/22 04:30 01/21/22 04:30 01/21/22 04:30 01/21/22 04:30 Oxygen Delivery Method Room Air Weight: 188 lb 7.924 oz Body Mass Index (BMI) 30.6 Intake & Output: Intake and Output for Last 24 Hours 01/19/22 01/20/22 01/21/22 23:59 23:59 23:59 Intake Total 3333.33 / 3333.33 513.3333 / 513.3333 Output Total 3300 / 3300 2100 / 2100 Balance 33.33 / 33.33 -1586.6667 / -1586.6667 Lab / Micro Data Result Diagrams: 01/18/22 04:20 01/21/22 05:40 Labs: Laboratory Results - last 24 hr 01/21/22 05:40: Sodium 132 L, Potassium 3.5, Chloride 88 L, Carbon Dioxide 36.0 H, Anion Gap 8, BUN 10, Creatinine 0.85, Estim Creat Clear Calc 86.53, Est GFR (MDRD) Af Amer 119, Est GFR (MDRD) Non-Af 98, BUN/Creatinine Ratio 11.7, Glucose 109 H, Calcium 9.5, Total Bilirubin 0.60, AST 113 H, ALT 118 H, Alkaline Phosphatase 61, Total Protein 7.2, Albumin 3.5, Globulin 3.7, Albumin/Globulin Ratio 0.9 Micro: Microbiology 01/17/22 11:17 Nasal Secretion SARS-CoV-2 Antigen (Rapid) - Final Rhythm Strip Rhythm Strip: Sinus Rhythm Rate: 95 Ectopy: None Physical Exam Narrative Physical exam General: Alert awake oriented x3 HEENT: Atraumatic, PERRLA, EOMI, Normocephalic Oral: Oral sores probably yeast present on admission Neck: Supple, No JVD, Negative Carotid Bruits Lungs:? Air entry diminished in bilateral lung bases.? No crepitation/rhonchi Cardiovascular: Regular rate, Regular Rhythm, Normal S1, Normal S2, No murmurs Abdomen: Bowel Sounds Present, Soft, Non Tender, Non-Distended : No renal angle tenderness.? No suprapubic tenderness. Extremities: No edema, Capillary Refill Less than 3 Seconds Skin: Small bruise on the left knee.? No ulcer.? No rash. Musculoskeletal: No Tenderness to Palpation of Joints or Extremities. ROM intact and full. Neurological:? DTR? 2+/4, tone 2/4.? Muscle strength 5/5 at major joints.? No seizures. Psych/Mental Status:?Flat affect.? No hallucination delusion or illusion Assessment & Plan Assessment/Plan (1) Alcohol withdrawal: (2) Seizures: PLAN: Plan This is 56-year-old man admitted with generalized weakness for 1 week along with episode of unresponsiveness for 1 day. 1. Acute alcohol withdrawal seizures in a known alcoholic, witnessed in the ED Last drink was 4 days prior to admission Heavy drinker- 42% vodka about a liter daily Previous history of similar presentation in 2017 with associated severe hyponatremia CT of the brain is unremarkable 01/18: Patient? admitted in ICU.? Intensive monitorin on the phenobarbital and Ativan as needed as per CIWA score alcohol withdrawal protocol.? Transfer to [facility]. 01/19: Seizures are well controlled.? Patient on phenobarbital taper.? Discussed with the 180 sales and marketing manager, RN.? Patient refused for inpatient drug rehab.? Encourage solute intake. 01/20: Discussed with case 180 case maager. Refused for outpatient or inpatient rehab.? Mild oropharyngeal candidiasis patient. Continue nystatin oral swish and swallow 2. Severe hyponatremia, likely secondary to alcohol use, beer potomania, low solute intake, or chlorthalidone side effect or mixed Patient continued to take his chlorthalidone despite not feeling well. 01/18: Sodium improved from 113-123.? Patient previous sodium was normal.? On IV fluid normal saline.? Urine electrolytes, serum osmolality, urine osmolality Sodium is 113, previous sodium was normal Check urine sodium, creatinine, osmolality, serum osmolality, TSH and serum cortisol ordered 01/19: Serum sodium is 130.? IV fluid discontinued. Electrolytes are getting replaced. 01/20: Serum cortisol 26 high, TSH, low normal. Mild hypokalemia and hypophosphatemia.? Patient on Neutra-Phos. 3. Dehydration, admission creatinine of 1.61 patient with previous creatinine 1 .44 01/19 creatinine is 1.12. 01/20: Creatinine 0.8. 4.? Severe hypokalemia and hypomagnesemia, Mg 1.9, hypophosphatemia 01/18: Repeat magnesium normal but phosphorus low.? IV potassium phosphate ordere d. 01/19: Phosphorus 2.1, magnesium 2.3.? K3.2.? Labs shows hypokalemia, hypophosphatemia and hyponatremia.? IV potassium phosphate ordered. 5. Elevated troponin likely demand/noncardiac related secondary to #1 [address]KG shows no acute [address]-T changes Serial troponin shows downward trend. 6. Elevated transaminases secondary to alcohol use, most probably acute on chronic alcoholic hepatitis or acute alcoholic hepatitis.? AST/ALT ratio more than 2?2 1.? Transaminases are trending down.? Alkaline phosphatase normal.? Total bilirubin improving. Maddrey's discriminant function is 14.9.? Liver ultrasound and hepatitis profile pending.? No RUQ tenderness 01/19: Liver ultrasound shows fatty liver with echogenic sludge in GB but no evidence of cholecystitis.? Patient does not have RUQ tenderness.? Echogenic pancreas probably fatty change from chronic alcohol use.? Monitor liver chemistry. 7. Hypertension, relatively hypotensive, Hold chlorthalidone and irbesartan Continue on metoprolol with holding parameters 8. DVT prophylaxis?heparin subcu In the late evening, patient's came. Patient's nurses and management team convinced that patient is not safe for discharge home. He agreed for going to ECF. Discharge canceled. Charges/Coding Visit Charges Inpatient E&M: 33400 Subs Hosp L2
[2022-01-20] MEDS: 0.9% Saline Lock 10 ML Syringe IV (17:33)
[2022-01-20] MEDS: Phenol/Sodium Phenolate 180ML 3 SPRAY MUCOUS MEM (17:35)
--- NOTE | 2022-01-20 18:25 | NURSING ---
and pt would like NH at this time. they are not able to provide the total care for the 24-48hrs now. a list will be given to CM/JL in morning on 01/21
[2022-01-20] MEDS: Senna/Docusate Sodium 1 Tablet PO (22:11)
[2022-01-21 04:30] VITALS: BP 134/98; PULSE 88; RESP 18; TEMP 36.2; O2SAT 98
[2022-01-21] MEDS: Na Biphos/Potassium Phosphate PACKET 1 PACKET PO ×2 (04:58→15:35)
[2022-01-21] MEDS: Phenol/Sodium Phenolate 180ML 3 SPRAY MUCOUS MEM ×3 (04:59→15:37)
[2022-01-21 06:46] LABS: ALB/GLOB Ratio 0.9 RATIO (0.9-2.4); AST(SGOT) 113 U/L (15-37); Alanine Aminotransfer ALT/SGPT 118 U/L (16-61); Albumin, Serum 3.5 g/dL (3.2-5.0); Alkaline Phosphatase 61 U/L (45-117); Anion Gap 8 (5-15); BUN 10 mg/dL (7-18); BUN/Creat Ratio 11.7 RATIO (10-20); Calcium,Total 9.5 mg/dL (8.5-10.1); Chloride 88 mmol/L (98-107); Creatinine, Serum 0.85 mg/dL (0.70-1.30); EST Glomerular Filtration Rate 98 mL/min (>60); Est Glom Filt Rate - Afr Amer 119 mL/min (>60); Estimated Creatinine Clearance 86.53 ml/min; Globulin 3.7 g/dL (2.2-4.2); Glucose 109 mg/dL (74-106); Potassium 3.5 mmol/L (3.5-5.1); Protein, Total 7.2 g/dL (6.4-8.2); Sodium Level 132 mmol/L (136-145)
[2022-01-21 08:00] VITALS: BP 145/95; PULSE 80; RESP 16; TEMP 37.1; O2SAT 99
--- NOTE | 2022-01-21 08:54 | CASEMGMT ---
Social Work SW in to meet with pt and discuss SNF choices following pt and family change of mind last night. Pt stated wants him to go to SNF and he is reluctantly agreeable. Pt will be here to visit after 9 am and pt would like SW to speak to about choices. SW to wait for pt arrival for SNF choices. MICAH Vargas
[2022-01-21] MEDS: NYSTATIN 500,000 UNIT/5 ML UDC 500000 UNIT PO ×3 (09:15→17:06)
[2022-01-21] MEDS: Folic Acid 1 MG Tablet PO (09:20)
[2022-01-21] MEDS: Thiamine Hydrochloride 100 MG Tablet PO (09:20)
[2022-01-21] MEDS: Aspirin E.C. 81 MG Tablet PO (09:20)
[2022-01-21 09:26] VITALS: BP 145/95; PULSE 80
[2022-01-21] MEDS: Metoprolol(XL)Succ 25 MG Tablet PO (09:26)
[2022-01-21 10:05] VITALS: O2SAT 98
--- NOTE | 2022-01-21 10:29 | CASEMGMT ---
Social Work SW in to meet with pt and pt . Discussed options for SNF. Pt still adamant wants to go home. SW discussed re-evaluating with PT and pt agreeable to this. Pt stated would comply with PT and would agree to whatever recommendation PT makes about discharge plan. Pt gave SNF options of [facility] and [facility] if SNF is recommended. SW called Pt to update and PT/OT discussed intent to see pt luis alberto. PT evaluated pt and recommended pt go home with Home Health as pt has made vast improvement. SW called pt to update on progress and discuss home health options. Pt , Carmencita, stated [facility] is first choice. Carmencita also stated would not be able to pick pt up for transport home until after 5 pm. Pt nurse and updated on new plan for pt to discharge home. RNCM notified of Home Health choice and will send referral for pt. SW in to inform pt of discharge to home. Pt happy. Discussed HH for [facility] and pt agreeable to this. Disposition: Home with Home Health MICAH Vargas
[2022-01-21] MEDS: Multivitamins,Therapeutic Tablet 1 TABLET PO (10:38)
--- NOTE | 2022-01-21 10:38 | PCM.DC.SUM ---
Providers Date of Admission: 01/17/22 Date of Discharge: 01/20/22 Primary Care Physician: Dr. Jourdan Branch MD Consultations 01/17/22 14:03 Consult: Link Trainer Operator / Pulmonary Medicine Routine Consulting Provider: Pulmonary Medicine jaison [place] Reason for Consult: Seizures EMERGENT Consult: No MD Notified: Yes Date Notified: 01/17/22 Time Notified: 12:42 Method of Notification: Text Reason For Visit: SEIZURE Diagnosis Discharge Diagnosis (1) Alcohol withdrawal seizure: Status: Suspected Code(s): F10.239 - Alcohol dependence with withdrawal, unspecified; R56.9 - Unspecified convulsions Medications at Discharge Home Medications aspirin 81 mg tablet,delayed release (Aspir-Low) 81 mg PO DAILY ##1 09/27/16 chlorthalidone 25 mg tablet 25 mg PO DAILY 01/17/22 irbesartan 150 mg tablet (Avapro) 150 mg PO DAILY 01/17/22 metoprolol succinate 25 mg tablet,extended release 24 hr 25 mg PO BID 01/17/22 folic acid 1 mg tablet 1 mg PO DAILY@0800 #30 tabs 01/20/22 nystatin 100,000 unit/mL oral suspension 500,000 unit (5 mL) PO 4X/DAY #200 mL 01/20/22 pantoprazole 40 mg tablet,delayed release (Protonix) 40 mg PO DAILY #30 tabs 01/20/22 potassium, sodium phosphates 280 mg-160 mg-250 mg oral powder packet 1 packet PO TID 3 days #9 ea 01/20/22 thiamine HCl (vitamin B1) 100 mg tablet (Vitamin B-1) 100 mg PO DAILYCM #30 tabs 01/20/22 Hospital Course Summary of Care Provided Hospital Course: This is 56-year-old man admitted with generalized weakness for 1 week along with episode of unresponsiveness for 1 day. 1. Acute alcohol withdrawal seizures in a known alcoholic, witnessed in the ED Last drink was 4 days prior to admission Heavy drinker- 42% vodka about a liter daily Previous history of similar presentation in 2017 with associated severe hyponatremia CT of the brain is unremarkable 01/18: Patient admitted in ICU.? Intensive monitorin on the phenobarbital and Ativan as needed as per CIWA score alcohol withdrawal protocol. Transfer to [facility]. 01/19: Seizures are well controlled. Patient on phenobarbital taper. Discussed with the 180 agency development manager, RN. Patient refused for inpatient drug rehab. Encourage solute intake. 01/20: Discussed with palliative. Refused for outpatient or inpatient rehab. Mild oropharyngeal candidiasis patient is discharged home. Prescription given for Neutra-Phos, thiamine, folic acid, pantoprazole and nystatin oral swish and swallow 2. Severe hyponatremia, likely secondary to alcohol use, beer potomania, low solute intake, or chlorthalidone side effect or mixed Patient continued to take his chlorthalidone despite not feeling well. 01/18: Sodium improved from 113-123.? Patient previous sodium was normal.? On IV fluid normal saline.? Urine electrolytes, serum osmolality, urine osmolality Sodium is 113, previous sodium was normal Check urine sodium, creatinine, osmolality, serum osmolality, TSH and serum cortisol ordered 01/19: Serum sodium is 130. Electrolytes are getting replaced. 01/20: Mild hypokalemia and hypophosphatemia. Patient on Neutra-Phos and prescription given for same. 3. Dehydration, admission creatinine of 1.61 patient with previous creatinine 1.44 01/19 creatinine is 1.12. 01/20: Creatinine 0.8. 4.? Severe hypokalemia and hypomagnesemia, Mg 1.9, hypophosphatemia 01/18: Repeat magnesium normal but phosphorus low.? IV potassium phosphate ordered. 01/19: Phosphorus 2.1, magnesium 2.3. K3.2. Labs shows hypokalemia, hypophosphatemia and hyponatremia. IV potassium phosphate ordered. 5. Elevated troponin likely demand/noncardiac related secondary to #1 EKG shows no acute ST-T changes Serial troponin shows downward trend. 6. Elevated transaminases secondary to alcohol use, most probably acute on chronic alcoholic hepatitis or acute alcoholic hepatitis.? AST/ALT ratio more than 2?2 1.? Transaminases are trending down.? Alkaline phosphatase normal.? Total bilirubin improving. Maddrey's discriminant function is 14.9.? Liver ultrasound and hepatitis profile pending.? No RUQ tenderness 01/19: Liver ultrasound shows fatty liver with echogenic sludge in GB but no evidence of cholecystitis. Patient does not have RUQ tenderness. Echogenic pancreas probably fatty change from chronic alcohol use. Monitor liver chemistry. 7. Hypertension, relatively hypotensive, Hold chlorthalidone and irbesartan Continue on metoprolol with holding parameters 8. DVT prophylaxis?heparin subcu Discharge medication reconciliation done. Discharge follow-up instructions completed. Discharge process discussed with the patient and all questions were answered to patient's satisfaction. Total time spent, exact 35 minutes on discharge meds reconciliation, examination, coordination of care with nurses and ancillary staff, review of imaging and blood test and discussion with the patient on follow-up instructions. Clinical Impression(s) from Imaging Studies Brain CT 01/17/22 11:01 IMPRESSION: Normal unenhanced CT scan of the brain. Chest X-Ray 01/17/22 11:10 IMPRESSION: Degenerative changes, as described above. No demonstrated acute cardiopulmonary process. Liver Ultrasound 01/18/22 05:55 IMPRESSION: Fatty liver, no discrete lesion Echogenic sludge in the gallbladder, no sonographic evidence of cholecystitis Echogenic pancreas Simple hepatic cyst, no specific follow-up needed 01/19: Discontinue IV fluid. Physical Exam Narrative Seen and examined. Physical exam General: Le.?3. HEENT: Atraumatic, PERRLA, EOMI, Normocephalic Oral: Oral sores probably yeast present on admission Neck: Supple, No JVD, Negative Carotid Bruits Lungs:? Air entry diminished in bilateral lung bases.? No crepitation/rhonchi Cardiovascular: Regular rate, Regular Rhythm, Normal S1, Normal S2, No murmurs Abdomen: Bowel Sounds Present, Soft, Non Tender, Non-Distended : No renal angle tenderness.? No suprapubic tenderness. Extremities: No edema, Capillary Refill Less than 3 Seconds Skin: Small bruise on the left knee.? No ulcer.? No rash. Musculoskeletal: No Tenderness to Palpation of Joints or Extremities Neurological:? DTR? 2+/4, tone 2/4.? Muscle strength 5/5 at major joints. No seizures. Psych/Mental Status:?Flat affect. No hallucination delusion or illusion Weight / BMI Weight Weight: 188 lb 7.924 oz Body Mass Index (BMI) 30.6 ABG / Lab / Microbiology Data Result Diagrams: 01/18/22 04:20 01/20/22 04:18 Laboratory: Laboratory Results - last 24 hr 01/17/22 14:10: Hepatitis A IgM Ab Negative, Hep Bs Antigen Negative, Hep B Core IgM Ab Negative, Hepatitis C Ab (EIA) <0.1, Hep C Ab Comment Comment 01/20/22 04:18: Sodium 130 L, Potassium 3.0 L, Chloride 89 L, Carbon Dioxide 32.0, Anion Gap 9, BUN 11, Creatinine 0.83, Estim Creat Clear Calc 88.61, Est GFR (MDRD) Af Amer 123, Est GFR (MDRD) Non-Af 102, BUN/Creatinine Ratio 13.3, Glucose 103, Calcium 8.5, Phosphorus 2.2 L, Total Bilirubin 0.60, AST 182 H, ALT 122 H, Alkaline Phosphatase 54, Total Protein 6.4, Albumin 3.1 L, Globulin 3.3, Albumin/Globulin Ratio 0.9 Microbiology: Microbiology 01/17/22 11:17 Nasal Secretion SARS-CoV-2 Antigen (Rapid) - Final D/C Instructions Discharge Diet: No restrictions Call your doctor if you observe: Fever of 101 or Higher, Coldness, Increased Pain, Numbness or Tingling, Change in Color, Inability to urinate, Inability to have a bowel movement, Shortness of breath, Dizziness, Fainting spells, Swelling in the ankles, Chest pain, Prolonged hiccupping, Increased palpitations (irregular heartbeat), Calf discomfort and Uncontrolled pain Meaningful Use Info Meaningful Use Diagnoses (Choose all that apply): None applicable Discharge Plan Admission Admit Date/Time: 01/17/22 12:39 Primary Reason for Your Visit: Acute alcohol withdrawal seizure Attending Provider: Erik Olmstead Primary Care Provider: Jourdan Branch Consulting Providers: Dania Lopes ; Alphonse Turner ; Ismael Serna ; Chip Steele ; Roma Geller RULING TECHNICIAN Discharge Orders/Prescriptions Prescriptions: New nystatin 100,000 unit/mL Suspension 500,000 unit PO 4X/DAY Qty: 200 0RF thiamine HCl (vitamin B1) [Vitamin B-1] 100 mg Tablet 100 mg PO DAILYCM Qty: 30 2RF folic acid 1 mg Tablet 1 mg PO DAILY@0800 Qty: 30 2RF pantoprazole [Protonix] 40 mg tablet,delayed release (DR/EC) 40 mg PO DAILY Qty: 30 1RF potassium, sodium phosphates 280-160-250 mg Powder In Packet 1 packet PO TID 3 Days Qty: 9 0RF Continued aspirin [Aspir-Low] 81 MG tablet,delayed release (DR/EC) 81 mg PO DAILY Qty: 1 0RF chlorthalidone 25 mg Tablet 25 mg PO DAILY metoprolol succinate 25 mg tablet extended release 24 hr 25 mg PO BID irbesartan [Avapro] 150 mg Tablet 150 mg PO DAILY Referrals / Follow Up: Jourdan Branch MD [Primary Care Provider] - FriendChivo DO [Med Staff - Active Staff] - Within 1 Month (For alcoholic hepatitis) Disposition Disposition (needs filled in before D/C Order can be placed): Home Health Service Charges/Coding Visit Charges Inpatient E&M: 00145 Disch Hosp
--- NOTE | 2022-01-21 10:41 | CASEMGMT ---
Addendum entered by Janie Madden 01/21/22 11:43: Received tc from Jennifer at [facility], states pt insurance deductible has not been met. $602.09 has been med of $5000. [facility] would cost 100% until deductible is met, but this hospital stay has not been billed yet and this could change based on that. CORI PICHARDO in to pt room to make pt aware. He states to call his . CORI PICHARDO called pt . She states pt is out of work and she cannot afford this at this time. She states she will pick pt up and she will be off work tomorrow and she has friends lined up to care for pt as well. Updated hospitalist. Original Note: CORI PICHARDO made aware pt able to go home with [facility] and pt/ chose [facility]. TC to Jennifer, left message with referral. Will await acceptance.
[2022-01-21 12:00] VITALS: BP 137/92; PULSE 84; RESP 18; TEMP 36.8; O2SAT 98
[2022-01-21 15:39] VITALS: BP 144/100; PULSE 70; RESP 18; TEMP 36.7; O2SAT 100
== END 2022-01-21 17:24 | disposition home health service (06) | DRG 897 ==
LOC: ED 12:08 → ICU 13:14 → MS3 01-18 14:57
PROVIDERS: Internal Medicine Critical Care Medicine; Admitting Provider Internal Medicine; Emergency Provider Emergency Medicine; PCP Family Medicine; Visit Provider Internal Medicine
DX: F10.239 Alcohol dependence with withdrawal, unspecified (principal); B37.0 Candidal stomatitis; G40.89 Other seizures; E87.1 Hypo-osmolality and hyponatremia; D69.6 Thrombocytopenia, unspecified; E83.39 Other disorders of phosphorus metabolism; E86.0 Dehydration; I95.9 Hypotension, unspecified; K70.10 Alcoholic hepatitis without ascites; K76.0 Fatty (change of) liver, not elsewhere classified; E87.6 Hypokalemia; I10 Essential (primary) hypertension; F17.220 Nicotine dependence, chewing tobacco, uncomplicated; D64.9 Anemia, unspecified; K76.89 Other specified diseases of liver; E83.42 Hypomagnesemia; R74.8 Abnormal levels of other serum enzymes; R29.6 Repeated falls; Y90.0 Blood alcohol level of less than 20 mg/100 ml; E66.9 Obesity, unspecified; Z68.30 Body mass index [BMI] 30.0-30.9, adult; Z79.82 Long term (current) use of aspirin; Z79.899 Other long term (current) drug therapy
CPT/HCPCS: 36415; 70450; 71045; 76705; 80048; 80053; 80074; 80076; 80307; 81001; 82077; 82436; 82533; 82570; 82962; 83735; 83930; 83935; 84100; 84133; 84295; 84300; 84443; 84484; 85025; 85610; 85730; 87811; 93005; 97116; 97162; 97166; 97530; 97535; 97802; 99284; 99406; J7030; J7040; A4216